=== PATIENT | female | born 1975 ===

== ENCOUNTER 2017-01-15 09:02 | Emergency (ER) | payer SELFPAY ==
--- NOTE | 2017-01-16 08:51 | CT ---
PROCEDURE: CT HEAD WITHOUT CONTRAST. HISTORY: Headaches COMPARISON: None available. TECHNIQUE: Axial computed tomography images were obtained through the head/brain without intravenous contrast. Radiation dose: Total exam DLP = 824.15 mGy-cm. This CT exam was performed using one or more of the following dose reduction techniques: Automated exposure control, adjustment of the mA and/or kV according to patient size, and/or use of iterative reconstruction technique. FINDINGS: HEMORRHAGE: No intracranial hemorrhage. BRAIN: No mass effect or edema. No atrophy or chronic microvascular ischemic changes.Please note that MRI with diffusion imaging is more sensitive in the detection of acute ischemic event. VENTRICLES: No hydrocephalus. CALVARIUM: Unremarkable. PARANASAL SINUSES: Unremarkable as visualized. No significant inflammatory changes. MASTOID AIR CELLS: Unremarkable as visualized. No inflammatory changes. OTHER FINDINGS: None. IMPRESSION: No acute intracranial pathology identified.
== END 2017-01-15 14:30 | disposition home or self-care (01) ==
LOC: C.ER 09:02 → MERGE 09:02 → C.ER 14:30
DX: R51 Headache (principal)
CPT/HCPCS: 70450; 96361; 96374; 96375; 99281; J1885; J2765; J7040

== ENCOUNTER 2017-06-24 10:24 | Emergency (ER) | payer OTHER ==
[2017-06-24 10:37] VITALS: TEMP 98.2
[2017-06-24] MEDS ORDERED: Naproxen 550 mg Tab PO STA (11:03)
[2017-06-24] MEDS ORDERED: Naproxen 550 mg Tab PO ONE (11:14)
--- NOTE | 2017-06-24 11:29 | RAD ---
PROCEDURE: Right Knee Radiographs. HISTORY: COMPARISON: Bilateral knee radiographs performed 11/30/13 FINDINGS: BONES: No acute displaced fracture. JOINTS: No dislocation. Mild medial compartment narrowing. JOINT EFFUSION: Small suprapatellar joint effusion. OTHER FINDINGS: None. IMPRESSION: Mild medial compartment narrowing. Small suprapatellar joint effusion. No acute displaced fracture or dislocation. If symptoms persist, or if there is continued clinical concern, x-ray follow-up in 7-10 days should be considered.
--- NOTE | 2017-06-24 11:32 | C.PDOC ---
History Of Present Illness 41 y/o female presents to ED with c/o R knee pain for 1 month. Patient states she fell while getting off a bus 1 month ago, landing onto both knees. She states she has not been seen previously because she could not get out of work. She denies head injury/LOC, weakness, sensory changes. Time Seen by Provider: 06/24/17 10:42 Chief Complaint (Nursing): Lower Extremity Problem/Injury History Per: Patient History/Exam Limitations: no limitations Onset/Duration Of Symptoms: Persistent Current Symptoms Are (Timing): Still Present Severity: Mild Past Medical History Reviewed: Historical Data, Nursing Documentation, Vital Signs Vital Signs: Last Vital Signs Temp 98.2 F 06/24/17 10:36 Pulse 71 06/24/17 12:41 Resp 18 06/24/17 12:41 BP 124/72 06/24/17 12:41 Pulse Ox 99 06/24/17 13:12 - Medical History PMH: Asthma, Diabetes, Hypercholesterolemia Family History: States: No Known Family Hx - Social History Hx Tobacco Use: No Hx Alcohol Use: No Hx Substance Use: No - Immunization History Hx Tetanus Toxoid Vaccination: No Hx Influenza Vaccination: Yes Hx Pneumococcal Vaccination: No Review Of Systems Except As Marked, All Systems Reviewed And Found Negative. Constitutional: Negative for: Fever, Chills Cardiovascular: Negative for: Chest Pain Respiratory: Negative for: Cough, Shortness of Breath Gastrointestinal: Negative for: Nausea, Vomiting, Abdominal Pain Musculoskeletal: Positive for: Other (Knee Pain, R) Skin: Negative for: Rash Neurological: Negative for: Weakness, Numbness, Dizziness Physical Exam - Physical Exam Appears: Well, Non-toxic, No Acute Distress Skin: Warm, Dry, No Ecchymosis Head: Normacephalic Cardiovascular: Rhythm Regular Respiratory: Normal Breath Sounds, No Rales, No Rhonchi, No Wheezing Back: Normal Inspection Extremity: Normal ROM, Tenderness (R knee mild diffuse tenderness to palpation ) , No Calf Tenderness, Capillary Refill (< 2 sec all digits ), No Deformity, No Swelling, Other (no erythema or warmth to touch at right knee) Extremity: Bilateral: Limited ROM To Joint Pulses: Left Radial: Normal, Right Radial: Normal Neurological/Psych: Oriented x3, Normal Motor, Normal Sensation Gait: Steady ED Course And Treatment O2 Sat by Pulse Oximetry: 99 (RA) Pulse Ox Interpretation: Normal - Other Rad RIGHT KNEE X-RAY X-Ray: Viewed By Me, Read By Radiologist Interpretation: IMPRESSION: Mild medial compartment narrowing. Small suprapatellar joint effusion. No acute displaced fracture or dislocation. If symptoms persist, or if there is continued clinical concern, x-ray follow-up in 7-10 days should be considered. Progress Note: Patient given PO Naprosyn. Xrays of right knee ordered and reviewed. Xray (-) for fracture/dislocation. Knee brace applied to right knee by electro mechanical technician. Patient given Rx for Naprosyn and instructed to follow up with orthopedics within 1 week. She understands she should return to ED if symptoms worsen. Reevaluation Time: 12:15 Reassessment Condition: Improved Disposition Counseled Patient/Family Regarding: Studies Performed, Diagnosis, Need For Followup, Rx Given - Disposition Referrals: Demetri Vuong III, MD [Staff Provider] - [facility] [Outside] Disposition: HOME/ ROUTINE Disposition Time: 12:15 Condition: STABLE Additional Instructions: SEGUIMIENTO CON ORTOPEDIA DENTRO DE 1 SEMANA USE MEDICAMENTO SEGN SEA NECESARIO PARA DOLOR REGRESE AL TORIE DE EMERGENCIA SI LOS SNTOMAS EMPEORAN Prescriptions: Naproxen 375 mg PO BID PRN #20 tablet PRN Reason: pain Instructions: Knee Sprain (ED) Forms: [facility] (Belarusian) Print Language: ISRAELI - POA Present On Arrival: Falls Or Trauma - Clinical Impression Clinical Impression: Sprain of right knee - Scribe Statement The provider has reviewed the documentation as recorded by the Scribe SM All medical record entries made by the Scribe were at my direction and personally dictated by me. I have reviewed the chart and agree that the record accurately reflects my personal performance of the history, physical exam, medical decision making, and the department course for this patient. I have also personally directed, reviewed, and agree with the discharge instructions and disposition.
[2017-06-24 12:43] VITALS: BP 124/72; PULSE 71; RESP 18
[2017-06-24 13:10] VITALS: O2SAT 99
== END 2017-06-24 12:43 | disposition home or self-care (01) ==
LOC: C.ER 10:24
DX: S83.91XA Sprain of unspecified site of right knee, initial encounter (principal); W17.89XA Other fall from one level to another, initial encounter

== ENCOUNTER 2017-07-11 01:07 | Emergency (ER) | payer SELFPAY ==
[2017-07-11] MEDS ORDERED: Sodium Chloride 0.9% 1,000 ML IV ONE (01:35)
--- NOTE | 2017-07-11 01:37 | C.PDOC ---
History Of Present Illness 41 year old female presents to the ER with a complaint of headache that she describes as a heavy sensation on her head for the past 6 days, associated with a subjective fever, neck pain, photophobia, and phonophobia. Patient states she had an episode of generalized body aches and chest pain 6 days ago, she was seen and treated at [facility] and notes she has had the headache since then. Denies chest pain, SOB, or Hx of headaches. Chief Complaint (Nursing): Medical Clearance History Per: Patient History/Exam Limitations: no limitations Onset/Duration Of Symptoms: Days Current Symptoms Are (Timing): Still Present Recent travel outside of the [place]: No Past Medical History Reviewed: Historical Data, Nursing Documentation, Vital Signs Vital Signs: Last Vital Signs Temp 98.0 F 07/11/17 01:19 Pulse 66 07/11/17 01:19 Resp 18 07/11/17 01:19 BP 119/71 07/11/17 01:19 Pulse Ox 98 07/11/17 02:22 - Medical History PMH: Asthma, Diabetes, Hypercholesterolemia Surgical History: No Surg Hx Family History: States: Unknown Family Hx - Social History Hx Tobacco Use: No Hx Alcohol Use: Yes Hx Substance Use: No - Immunization History Hx Tetanus Toxoid Vaccination: No Hx Influenza Vaccination: No Hx Pneumococcal Vaccination: No Review Of Systems Constitutional: Positive for: Fever (Subjective) Cardiovascular: Negative for: Chest Pain Respiratory: Negative for: Shortness of Breath Musculoskeletal: Positive for: Neck Pain Neurological: Positive for: Headache, Other (Photophobia, phonophobia) Physical Exam - Physical Exam Appears: Non-toxic, No Acute Distress, Other (Awake, Alert) Skin: Normal Color, Warm, Dry Head: Atraumatic, Normacephalic Eye(s): bilateral: Normal Inspection, EOMI Oral Mucosa: Moist Neck: Normal, No Midline Cervical Tenderness, No Paracervical Tenderness, Supple , Other (Patient is able to nod/shake her head yes/no to questions despite complaint of neck pain.) Chest: Symmetrical, No Tenderness Cardiovascular: Rhythm Regular Respiratory: Normal Breath Sounds, No Rales, No Rhonchi, No Wheezing Gastrointestinal/Abdominal: Soft, No Tenderness Neurological/Psych: Oriented x3, Normal Speech, Other (No focal deficits, negative kernig brudzinski sign) ED Course And Treatment O2 Sat by Pulse Oximetry: 98 (Room air) Pulse Ox Interpretation: Normal Medical Decision Making Medical Decision Making: Plan: * Compazine * Toradol * IV fluids On reevaluation, patient reports improvement of pain, will discharge home with Rx and instructions to follow up with PMD. Disposition - Disposition Referrals: [facility] at [facility] [Outside] Disposition: HOME/ ROUTINE Disposition Time: 02:19 Condition: FAIR Prescriptions: Acetaminophen/Butalbital/Caf [Fioricet] 1 tab PO QID PRN #12 tab PRN Reason: Pain, Mild (1-3) Instructions: Viral Syndrome (ED) Forms: [facility] (Montserratian) - Clinical Impression Clinical Impression: Viral syndrome, Cephalalgia - Scribe Statement The provider has reviewed the documentation as recorded by the Scribmichele Plasencia All medical record entries made by the Joselitoibmichele were at my direction and personally dictated by me. I have reviewed the chart and agree that the record accurately reflects my personal performance of the history, physical exam, medical decision making, and the department course for this patient. I have also personally directed, reviewed, and agree with the discharge instructions and disposition.
[2017-07-11] MEDS ORDERED: Sodium Chloride 0.9% 1,000 ML ONE (01:47)
[2017-07-11 02:50] VITALS: BP 109/80; PULSE 68; TEMP 97.4
[2017-07-11 02:52] VITALS: RESP 18
[2017-07-11 03:07] VITALS: O2SAT 98
== END 2017-07-11 02:51 | disposition home or self-care (01) ==
LOC: C.ER 01:07
DX: B34.9 Viral infection, unspecified (principal); R51 Headache
CPT/HCPCS: 96361; 96374; 96375; 99284; J0780; J1885; J7040

== ENCOUNTER 2017-10-02 17:48 | Inpatient (IN) | payer SELFPAY ==
[2017-10-02] MEDS ORDERED: Sodium Chloride 0.9% 1,000 ML IV ONE (19:45)
--- NOTE | 2017-10-02 19:47 | C.PDOC ---
History Of Present Illness 42 year old female presents to the ED referred from the [facility] for evaluation of anemia and Hb down to 7.3. Patient reports her period has been going on for the past 3 weeks as well as vaginal bleeding. Patient denies dizziness, headache, nausea, vomit, SOB, back pain. Chief Complaint (Nursing): Abnormal Labs History Per: Patient History/Exam Limitations: no limitations Onset/Duration Of Symptoms: Days Current Symptoms Are (Timing): Still Present Reports Recently: Treated By A Physician ([facility]) Recent travel outside of the [place]: No Additional History Per: Patient Past Medical History Vital Signs: Last Vital Signs Temp 98.7 F 10/02/17 18:06 Pulse 72 10/02/17 18:06 Resp 20 10/02/17 18:06 BP 109/61 10/02/17 18:06 Pulse Ox 100 10/02/17 21:46 - Medical History PMH: Asthma, Diabetes, Hypercholesterolemia Denies: Chronic Kidney Disease Surgical History: No Surg Hx Family History: States: Unknown Family Hx - Social History Hx Tobacco Use: No Hx Alcohol Use: Yes Hx Substance Use: No - Immunization History Hx Tetanus Toxoid Vaccination: No Hx Influenza Vaccination: No Hx Pneumococcal Vaccination: No Review Of Systems Constitutional: Negative for: Fever, Chills Cardiovascular: Negative for: Chest Pain, Palpitations Respiratory: Negative for: Cough, Shortness of Breath Gastrointestinal: Negative for: Nausea, Vomiting, Abdominal Pain, Diarrhea Genitourinary: Positive for: Vaginal Bleeding Musculoskeletal: Negative for: Back Pain Skin: Negative for: Rash Neurological: Negative for: Weakness, Numbness, Dizziness Physical Exam - Physical Exam Appears: Non-toxic, No Acute Distress Skin: Normal Color, Warm, Dry Head: Atraumatic, Normacephalic Eye(s): bilateral: Normal Inspection Nose: No Discharge, No Deformity Oral Mucosa: Moist Neck: Normal ROM, Supple Chest: Symmetrical Cardiovascular: Rhythm Regular, No Murmur Respiratory: Normal Breath Sounds, No Rales, No Rhonchi, No Wheezing Gastrointestinal/Abdominal: Soft, No Tenderness, No Guarding, No Rebound Pelvic: Normal External Exam, Vaginal Bleeding (minimal), No Cervix Open, Other (moderate amount of blood noted) Extremity: Normal ROM, No Deformity, No Swelling Neurological/Psych: Oriented x3, Normal Speech, Normal Cognition Gait: Steady ED Course And Treatment - Laboratory Results Result Diagrams: 10/02/17 19:55 10/02/17 19:55 O2 Sat by Pulse Oximetry: 100 (On RA) Pulse Ox Interpretation: Normal - CT Scan/US Pelvic US Other Rad Studies (CT/US): Read By Radiologist, Radiology Report Reviewed CT/US Interpretation: EXAM: US Pelvis Complete, Transabdominal. CLINICAL HISTORY: 42 years old, female; Signs and symptoms; Other: Prolonged vag bleed; Additional info: Prolongrd. vaginal bleeding. TECHNIQUE: Real-time transabdominal pelvic ultrasound (complete) with image documentation. COMPARISON: No relevant prior studies available. FINDINGS: Uterus/cervix: Uterus measures 12.1 x 6.2 x 7.4 cm in size. Heterogeneous uterus. 2.1 x 1.4 x 1.6. cm uterine mass. Nabothian cysts. Endometrium: 1.8 cm in thickness, heterogeneous. Right ovary: 3.9 x 3.0 x 4.3 cm in size. 3.8 x 3.9 x 2.5 cm anechoic lesion. Normal flow. Left ovary: Not visualized. Free fluid: No significant free fluid. Bladder: Unremarkable as visualized. IMPRESSION: 1. Thickened, heterogeneous endometrium. Clinical correlation is needed. 2. RIGHT ovarian cyst. EXAM: US Pelvis, Transvaginal. CLINICAL HISTORY: 42 years old , female; Signs and symptoms; Other: Prolonged vag bleed; Additional info: Prolongrd. vaginal bleeding. TECHNIQUE: Real-time transvaginal pelvic ultrasound (complete) with image documentation. Transvaginal. imaging was used for better evaluation of the endometrium and adnexa. COMPARISON: No relevant prior studies available. FINDINGS: Uterus/cervix: Uterus measures 12.1 x 6.2 x 7.4 cm in size. Heterogeneous uterus. 2.1 x 1.4 x 1.6. cm uterine mass. Nabothian cysts. Endometrium: 1.8 cm in thickness, heterogeneous. Right ovary: 3.9 x 3.0 x 4.3 cm in size. 3.8 x 3.9 x 2.5 cm anechoic lesion. Normal flow. Left ovary: Not visualized. Free fluid: No significant free fluid. Bladder: Empty bladder which cannot be evaluated with this probe. IMPRESSION: 1. Thickened, heterogeneous endometrium. Clinical correlation is needed. 2. RIGHT ovarian cyst. 3. Probable fibroid. 3. Probable fibroid. Medical Decision Making Medical Decision Making: Impression : vaginal bleeding, anemia Plan: * Labs * IV fluids * UA * Pelvis US Disposition Discussed With Dr.: Gregory Sands Doctor Will See Patient In The: Hospital Counseled Patient/Family Regarding: Diagnosis - Disposition Referrals: Gregory Sands MD [Staff Provider] - Disposition: HOSPITALIZED Disposition Time: 22:11 Condition: STABLE Forms: [facility] (Grenadian) - Clinical Impression Clinical Impression: Vaginal bleeding, Fibroid, uterine, Anemia - Scribe Statement The provider has reviewed the documentation as recorded by the Scribe Jason Su All medical record entries made by the Scribe were at my direction and personally dictated by me. I have reviewed the chart and agree that the record accurately reflects my personal performance of the history, physical exam, medical decision making, and the department course for this patient. I have also personally directed, reviewed, and agree with the discharge instructions and disposition.
[2017-10-02 20:03] LABS: BASO % 0.4 % (0.0-2.0); EOS # 0.1 K/uL (0.0-0.7); EOS % 0.9 % (0.0-4.0); HEMOGLOBIN 7.3 g/dL (11.0-16.0); LYMPH # 1.7 K/uL (1.0-4.3); LYMPH % 27.7 % (20.0-40.0); MEAN CELL VOLUME 71.1 fL (81.0-99.0); MEAN CORPUSCULAR HEMOGLOBIN 22.9 pg (27.0-31.0); MEAN CORPUSCULAR HGB CONC 32.2 g/dL (33.0-37.0); MONO # 0.2 K/uL (0.0-0.8); MONO % 3.9 % (0.0-10.0); NEUT # 4.2 K/uL (1.8-7.0); NEUT % 67.1 % (50.0-75.0); NRBC % 0.1 % (0.0-2.0); RBC 3.19 Mil/uL (3.80-5.20); RED CELL DISTRIBUTION WIDTH 17.1 % (11.5-14.5); WHITE BLOOD COUNT 6.3 K/uL (4.8-10.8)
[2017-10-02 20:08] LABS: PROTHROMBIN TIME 10.9 SECONDS (9.7-12.2)
[2017-10-02 20:14] LABS: ALB/GLOB RATIO 1.1 (1.0-2.1); ALT/SGPT 22 U/L (9-52); AST/SGOT 22 U/L (14-36); BLOOD UREA NITROGEN 8 mg/dL (7-17); CALCIUM 8.4 mg/dl (8.6-10.4); GFR AFRICAN-AMERICAN > 60; GFR NON-AFRICAN AMERICAN > 60
[2017-10-02 20:23] LABS: URINE BILIRUBIN NEGATIVE (NEGATIVE); URINE BLOOD 3+ (NEGATIVE); URINE CALCIUM OXALATE CRYSTALS MANY /hpf (<OCC); URINE CLARITY Hazy (Clear); URINE COLOR Red (YELLOW); URINE GLUCOSE (UA) NORMAL (Normal); URINE LEUKOCYTE ESTERASE TRACE Leu/uL (Negative); URINE NITRATE NEGATIVE (NEGATIVE); URINE PROTEIN 2+ mg/dL (NEGATIVE); URINE UROBILINOGEN NORMAL mg/dL (0.2-1.0)
[2017-10-02 20:29] LABS: HCG,QUALITATIVE URINE NEGATIVE (NEGATIVE)
[2017-10-02] MEDS ORDERED: Sodium Chloride 0.9% 1,000 ML ONE (20:37)
--- NOTE | 2017-10-02 21:45 | US ---
EXAM: US Pelvis Complete, Transabdominal CLINICAL HISTORY: 42 years old, female; Signs and symptoms; Other: Prolonged vag bleed; Additional info: Prolongrd vaginal bleeding TECHNIQUE: Real-time transabdominal pelvic ultrasound (complete) with image documentation. COMPARISON: No relevant prior studies available. FINDINGS: Uterus/cervix: Uterus measures 12.1 x 6.2 x 7.4 cm in size. Heterogeneous uterus. 2.1 x 1.4 x 1.6 cm uterine mass. Nabothian cysts. Endometrium: 1.8 cm in thickness, heterogeneous. Right ovary: 3.9 x 3.0 x 4.3 cm in size. 3.8 x 3.9 x 2.5 cm anechoic lesion. Normal flow. Left ovary: Not visualized. Free fluid: No significant free fluid. Bladder: Unremarkable as visualized. IMPRESSION: 1. Thickened, heterogeneous endometrium. Clinical correlation is needed. 2. RIGHT ovarian cyst. 3. Probable fibroid. EXAM: US Pelvis, Transvaginal CLINICAL HISTORY: 42 years old, female; Signs and symptoms; Other: Prolonged vag bleed; Additional info: Prolongrd vaginal bleeding TECHNIQUE: Real-time transvaginal pelvic ultrasound (complete) with image documentation. Transvaginal imaging was used for better evaluation of the endometrium and adnexa. COMPARISON: No relevant prior studies available. FINDINGS: Uterus/cervix: Uterus measures 12.1 x 6.2 x 7.4 cm in size. Heterogeneous uterus. 2.1 x 1.4 x 1.6 cm uterine mass. Nabothian cysts. Endometrium: 1.8 cm in thickness, heterogeneous. Right ovary: 3.9 x 3.0 x 4.3 cm in size. 3.8 x 3.9 x 2.5 cm anechoic lesion. Normal flow. Left ovary: Not visualized. Free fluid: No significant free fluid. Bladder: Empty bladder which cannot be evaluated with this probe.
--- NOTE | 2017-10-02 22:46 | CP.PCM.HP ---
History of Present Illness - History of Present Illness History of Present Illness: Chief compalint-vaginal bleeding HPI 42 y/o presents to ER with c/o heavy bleeding for last 3 weeks.Patient was prescribed tranexamic acid by her OBGYN Dr garrett Tilley but she took only few tablets.She feels weak and tired PMH Asthma PSH denies OBGYN HX ; [id number] Social hx denies tobacco,alcohol or illicit drug use Present on Admission - Present on Admission Any Indicators Present on Admission: No Review of Systems - Review of Systems All systems: reviewed and no additional remarkable complaints except - Constitutional Constitutional: Fatigue, Lethargy, Weakness - Cardiovascular Cardiovascular: absent: Chest Pain, Chest Pain with Activity, Irregular Heart Rhythm - Respiratory Respiratory: absent: Cough, Dyspnea - Gastrointestinal Gastrointestinal: absent: Nausea, Vomiting - Genitourinary Genitourinary: absent: Dysuria - Musculoskeletal Musculoskeletal: absent: Back Pain, Numbness - Neurological Neurological: absent: Vertigo, Weakness - Psychiatric Psychiatric: absent: Anxiety Past Patient History - Infectious Disease Hx of Infectious Diseases: None - Past Social History Smoking Status: Never Smoked - CARDIAC Hx Hypercholesterolemia: Yes - PULMONARY Hx Asthma: Yes - NEUROLOGICAL Hx Neurological Disorder: No - HEENT Hx HEENT Problems: No - RENAL Hx Chronic Kidney Disease: No - ENDOCRINE/METABOLIC Hx Endocrine Disorders: No - HEMATOLOGICAL/ONCOLOGICAL Hx Blood Disorders: No - INTEGUMENTARY Hx Dermatological Problems: No - MUSCULOSKELETAL/RHEUMATOLOGICAL Hx Musculoskeletal Disorders: No - GASTROINTESTINAL Hx Gastrointestinal Disorders: No - GENITOURINARY/GYNECOLOGICAL Hx Genitourinary Disorders: No - PSYCHIATRIC Hx Substance Use: No - SURGICAL HISTORY Hx Surgeries: No - ANESTHESIA Hx Anesthesia: No Meds Allergies/Adverse Reactions: Allergies Allergy/AdvReac Type Severity Reaction Status Date / Time No Known Allergies Allergy Verified 07/11/17 01:23 Physical Exam - Constitutional Appears: No Acute Distress - Respiratory Exam Respiratory Exam: Clear to Auscultation Bilateral, NORMAL BREATHING PATTERN - Cardiovascular Exam Cardiovascular Exam: REGULAR RHYTHM - GI/Abdominal Exam GI & Abdominal Exam: Soft. absent: Rigid, Tenderness - Exam External exam: NORMAL EXTERNAL EXAM Speculum exam: Vaginal Bleeding Bimanual exam: absent: Cervical Motion Tendernes, Uterine Enlargement, Uterine Tenderness - Extremities Exam Extremities exam: Negative for: calf tenderness - Back Exam Back exam: absent: CVA tenderness (L), CVA tenderness (R) - Neurological Exam Neurological exam: Alert, Normal Gait, Oriented x3 - Psychiatric Exam Psychiatric exam: Normal Affect, Normal Mood - Skin Skin Exam: Normal Color, Warm Results - Vital Signs Recent Vital Signs: Last Vital Signs Temp 99.2 F 10/02/17 22:35 Pulse 74 10/02/17 22:35 Resp 20 10/02/17 22:35 BP 110/56 L 10/02/17 22:35 Pulse Ox 100 10/02/17 22:35 - Labs Result Diagrams: 10/03/17 11:45 10/02/17 19:55 Labs: Laboratory Results - last 24 hr 10/02/17 10/02/17 10/02/17 19:55 19:55 19:55 WBC 6.3 RBC 3.19 L Hgb 7.3 L D Hct 22.7 L MCV 71.1 L MCH 22.9 L MCHC 32.2 L RDW 17.1 H Plt Count 281 MPV 8.0 Neut % (Auto) 67.1 Lymph % (Auto) 27.7 [place] % (Auto) 3.9 Eos % (Auto) 0.9 Baso % (Auto) 0.4 Neut # (Auto) 4.2 Lymph # (Auto) 1.7 [place] # (Auto) 0.2 Eos # (Auto) 0.1 Baso # (Auto) 0.0 PT 10.9 INR 1.0 APTT 30 Sodium 136 Potassium 3.7 Chloride 103 Carbon Dioxide 23 Anion Gap 14 BUN 8 Creatinine 0.5 L Est GFR ( Amer) > 60 Est GFR (Non-Af Amer) > 60 Random Glucose 102 Calcium 8.4 L Total Bilirubin 0.3 AST 22 ALT 22 Alkaline Phosphatase 84 Total Protein 7.5 Albumin 4.0 Globulin 3.5 Albumin/Globulin Ratio 1.1 Beta HCG, Quant < 2.39 Urine Color Urine Clarity Urine pH Ur Specific [place] Urine Protein Urine Glucose (UA) Urine Ketones Urine Blood Urine Nitrate Urine Bilirubin Urine Urobilinogen Ur Leukocyte Esterase Urine WBC (Auto) Urine RBC (Auto) Urine WBC Clumps (Auto) Calcium Oxalate Crystal Urine HCG, Qual Blood Type Blood Type Confirm Antibody Screen 10/02/17 10/02/17 19:55 20:01 WBC RBC Hgb Hct MCV MCH MCHC RDW Plt Count MPV Neut % (Auto) Lymph % (Auto) [place] % (Auto) Eos % (Auto) Baso % (Auto) Neut # (Auto) Lymph # (Auto) [place] # (Auto) Eos # (Auto) Baso # (Auto) PT INR APTT Sodium Potassium Chloride Carbon Dioxide Anion Gap BUN Creatinine Est GFR ( Amer) Est GFR (Non-Af Amer) Random Glucose Calcium Total Bilirubin AST ALT Alkaline Phosphatase Total Protein Albumin Globulin Albumin/Globulin Ratio Beta HCG, Quant Urine Color Red Urine Clarity Hazy Urine pH 6.0 Ur Specific [place] 1.013 Urine Protein 2+ H Urine Glucose (UA) Normal Urine Ketones Negative Urine Blood 3+ H Urine Nitrate Negative Urine Bilirubin Negative Urine Urobilinogen Normal Ur Leukocyte Esterase Trace Urine WBC (Auto) 5 Urine RBC (Auto) 6411 H Urine WBC Clumps (Auto) Sliver Former Calcium Oxalate Crystal Many H Urine HCG, Qual Negative Blood Type O POSITIVE Blood Type Confirm O POSITIVE Antibody Screen Negative Assessment & Plan (1) Anemia Assessment and Plan: Patient with symptomatic severe anemia transfuse 2 units s/p pelvic ultrasound thick endometrial lining.fibroid Status: Acute
[2017-10-03 02:44] VITALS: RESP 20
[2017-10-03 05:55] VITALS: PULSE 63
[2017-10-03 08:24] VITALS: BP 119/82; TEMP 98.3; O2SAT 100
[2017-10-03 11:54] LABS: BASO % 0.7 % (0.0-2.0); EOS # 0.1 K/uL (0.0-0.7); EOS % 1.8 % (0.0-4.0); LYMPH # 1.6 K/uL (1.0-4.3); LYMPH % 35.5 % (20.0-40.0); MEAN CORPUSCULAR HEMOGLOBIN 24.8 pg (27.0-31.0); MEAN CORPUSCULAR HGB CONC 33.4 g/dL (33.0-37.0); MEAN PLATELET VOLUME 8.1 fL (7.2-11.7); MONO # 0.3 K/uL (0.0-0.8); MONO % 5.9 % (0.0-10.0); NEUT # 2.6 K/uL (1.8-7.0); NEUT % 56.1 % (50.0-75.0); NRBC % 0.1 % (0.0-2.0); RBC 3.83 Mil/uL (3.80-5.20); RED CELL DISTRIBUTION WIDTH 18.5 % (11.5-14.5); WHITE BLOOD COUNT 4.6 K/uL (4.8-10.8)
[2017-10-03 12:07] LABS: HEMOGLOBIN 9.5 g/dL (11.0-16.0); MEAN CELL VOLUME 74.3 fL (81.0-99.0)
--- NOTE | 2017-10-03 12:51 | CP.PCM.DIS ---
Provider - Provider Date of Admission: 10/03/17 00:11 Attending physician: Gregory Sands MD Time Spent in preparation of Discharge (in minutes): 15 Diagnosis - Discharge Diagnosis (1) Anemia Status: Acute Hospital Course - Lab Results Lab Results: Most Recent Lab Values WBC 4.6 K/uL (4.8-10.8) L 10/03/17 11:45 RBC 3.83 Mil/uL (3.80-5.20) 10/03/17 11:45 Hgb 9.5 g/dL (11.0-16.0) L D 10/03/17 11:45 Hct 28.5 % (34.0-47.0) L 10/03/17 11:45 MCV 74.3 fL (81.0-99.0) L D 10/03/17 11:45 MCH 24.8 pg (27.0-31.0) L 10/03/17 11:45 MCHC 33.4 g/dL (33.0-37.0) 10/03/17 11:45 RDW 18.5 % (11.5-14.5) H 10/03/17 11:45 Plt Count 238 K/uL (130-400) 10/03/17 11:45 MPV 8.1 fL (7.2-11.7) 10/03/17 11:45 Neut % (Auto) 56.1 % (50.0-75.0) 10/03/17 11:45 Lymph % (Auto) 35.5 % (20.0-40.0) 10/03/17 11:45 [place] % (Auto) 5.9 % (0.0-10.0) 10/03/17 11:45 Eos % (Auto) 1.8 % (0.0-4.0) 10/03/17 11:45 Baso % (Auto) 0.7 % (0.0-2.0) 10/03/17 11:45 Neut # (Auto) 2.6 K/uL (1.8-7.0) 10/03/17 11:45 Lymph # (Auto) 1.6 K/uL (1.0-4.3) 10/03/17 11:45 [place] # (Auto) 0.3 K/uL (0.0-0.8) 10/03/17 11:45 Eos # (Auto) 0.1 K/uL (0.0-0.7) 10/03/17 11:45 Baso # (Auto) 0.0 K/uL (0.0-0.2) 10/03/17 11:45 PT 10.9 SECONDS (9.7-12.2) 10/02/17 19:55 INR 1.0 10/02/17 19:55 APTT 30 SECONDS (21-34) 10/02/17 19:55 Sodium 136 mmol/L (132-148) 10/02/17 19:55 Potassium 3.7 mmol/L (3.6-5.2) 10/02/17 19:55 Chloride 103 mmol/L (98-107) 10/02/17 19:55 Carbon Dioxide 23 mmol/L (22-30) 10/02/17 19:55 Anion Gap 14 (10-20) 10/02/17 19:55 BUN 8 mg/dL (7-17) 10/02/17 19:55 Creatinine 0.5 mg/dL (0.7-1.2) L 10/02/17 19:55 Est GFR ( Amer) > 60 10/02/17 19:55 Est GFR (Non-Af Amer) > 60 10/02/17 19:55 Random Glucose 102 mg/dL (65-105) 10/02/17 19:55 Calcium 8.4 mg/dl (8.6-10.4) L 10/02/17 19:55 Total Bilirubin 0.3 mg/dL (0.2-1.3) 10/02/17 19:55 AST 22 U/L (14-36) 10/02/17 19:55 ALT 22 U/L (9-52) 10/02/17 19:55 Alkaline Phosphatase 84 U/L (38-126) 10/02/17 19:55 Total Protein 7.5 g/dL (6.3-8.3) 10/02/17 19:55 Albumin 4.0 g/dL (3.5-5.0) 10/02/17 19:55 Globulin 3.5 gm/dL (2.2-3.9) 10/02/17 19:55 Albumin/Globulin Ratio 1.1 (1.0-2.1) 10/02/17 19:55 Beta HCG, Quant < 2.39 mIU/ML 10/02/17 19:55 Urine Color Red (YELLOW) 10/02/17 20:01 Urine Clarity Hazy (Clear) 10/02/17 20:01 Urine pH 6.0 (5.0-8.0) 10/02/17 20:01 Ur Specific [place] 1.013 (1.003-1.030) 10/02/17 20:01 Urine Protein 2+ mg/dL (NEGATIVE) H 10/02/17 20:01 Urine Glucose (UA) Normal mg/dL (Normal) 10/02/17 20:01 Urine Ketones Negative mg/dL (NEGATIVE) 10/02/17 20:01 Urine Blood 3+ (NEGATIVE) H 10/02/17 20:01 Urine Nitrate Negative (NEGATIVE) 10/02/17 20:01 Urine Bilirubin Negative (NEGATIVE) 10/02/17 20:01 Urine Urobilinogen Normal mg/dL (0.2-1.0) 10/02/17 20:01 Ur Leukocyte Esterase Trace Saad/uL (Negative) 10/02/17 20:01 Urine WBC (Auto) 5 /hpf (0-5) 10/02/17 20:01 Urine RBC (Auto) 6411 /hpf (0-3) H 10/02/17 20:01 Urine WBC Clumps (Auto) 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 10/02/17 20:01 Calcium Oxalate Crystal Many /hpf (<OCC) H 10/02/17 20:01 Urine HCG, Qual Negative (NEGATIVE) 10/02/17 20:01 Blood Type O POSITIVE 10/02/17 19:55 Blood Type Confirm O POSITIVE 10/02/17 19:55 Antibody Screen Negative 10/02/17 19:55 - Hospital Course Hospital Course: Patient admitted for symptomatic severe anemia secondary to menorrhagia Patient on admission noted to have minimal bleeding Patient transfused with 2 units of prbc after which the hemoglobin improved and patient started feeling better she was discharge and advsied to taek iron once daily She was also advsied to follow up with OBGYN next week for endometrial biopsy andfurtehr management Discharge Exam - Head Exam Head Exam: NORMAL INSPECTION - Respiratory Exam Respiratory Exam: Clear to PA & Lateral, NORMAL BREATHING PATTERN - Cardiovascular Exam Cardiovascular Exam: REGULAR RHYTHM - GI/Abdominal Exam GI & Abdominal Exam: Soft. absent: Rebound, Rigid - Back Exam Back exam: absent: CVA tenderness (L), CVA tenderness (R) - Neurological Exam Neurological exam: Alert, Normal Gait, Oriented x3 - Psychiatric Exam Psychiatric exam: Normal Affect, Normal Mood - Skin Skin Exam: Normal Color Discharge Plan - Follow Up Plan Condition: STABLE Disposition: HOME/ ROUTINE Referrals: Gregory Sands MD [Staff Provider] -
[2017-10-03] MEDS ORDERED: Pneumococcal 23-Valent Vaccine IM ONE (13:23)
[2017-10-05] MEDS ORDERED: Pneumococcal 23-Valent Vaccine IM ONE (10:00)
== END 2017-10-03 14:25 | disposition home or self-care (01) | DRG 761 ==
LOC: C.ER 17:48 → C.5S 10-03 00:11
PROVIDERS: ADMIT Student in an Organized Health Care Education/Training Program; ATTEND Student in an Organized Health Care Education/Training Program
DX: N92.0 Excessive and frequent menstruation with regular cycle (principal); D50.0 Iron deficiency anemia secondary to blood loss (chronic); E11.9 Type 2 diabetes mellitus without complications; J45.909 Unspecified asthma, uncomplicated; Z79.4 Long term (current) use of insulin

== ENCOUNTER 2018-02-03 20:12 | Emergency (ER) | payer OTHER ==
[2018-02-03 20:24] VITALS: TEMP 98.6; O2SAT 100
--- NOTE | 2018-02-03 20:59 | C.PDOC ---
Chief Complaint (Nursing): Chest Pain Past Medical History Vital Signs: Last Vital Signs Temp 98.6 F 02/03/18 20:17 Pulse 58 L 02/03/18 20:17 Resp 20 02/03/18 20:17 BP 132/79 02/03/18 20:17 Pulse Ox 100 02/03/18 20:17 - Medical History PMH: Asthma, Diabetes, Hypercholesterolemia Denies: Chronic Kidney Disease Family History: States: Unknown Family Hx - Social History Hx Tobacco Use: No Hx Alcohol Use: No Hx Substance Use: No - Immunization History Hx Tetanus Toxoid Vaccination: No Hx Influenza Vaccination: No Hx Pneumococcal Vaccination: No ED Course And Treatment ECG: Interpreted By Me, Viewed By Me ECG Rhythm: Sinus Bradycardia ECG Interpretation: Normal, No Acute Changes Interpretation Of ECG: Sinus bradycardia, no acute changes, normal tracings. Rate From EC O2 Sat by Pulse Oximetry: 100 Pulse Ox Interpretation: Normal Disposition - Disposition
--- NOTE | 2018-02-03 21:01 | C.PDOC ---
History Of Present Illness 42 y/o female presents to the ED complaining of chest pain that began earlier today while at work. Pain is localized to the anterior chest wall and radiates to the back. Worsens with movement and deep inspiration. Otherwise patient denies any palpitations, dizziness, SOB, nausea, vomiting, diaphoresis, or weakness. Time Seen by Provider: 02/03/18 20:53 Chief Complaint (Nursing): Chest Pain History Per: Patient History/Exam Limitations: no limitations Onset/Duration Of Symptoms: Hrs Current Symptoms Are (Timing): Still Present Past Medical History Reviewed: Historical Data, Nursing Documentation, Vital Signs Vital Signs: Last Vital Signs Temp 98.6 F 02/03/18 20:17 Pulse 63 02/03/18 21:32 Resp 18 02/03/18 21:32 BP 100/43 L 02/03/18 21:32 Pulse Ox 100 02/03/18 21:32 - Medical History PMH: Asthma, Diabetes, Hypercholesterolemia Denies: Chronic Kidney Disease Family History: States: Unknown Family Hx - Social History Hx Tobacco Use: No Hx Alcohol Use: No Hx Substance Use: No - Immunization History Hx Tetanus Toxoid Vaccination: No Hx Influenza Vaccination: No Hx Pneumococcal Vaccination: No Review Of Systems Constitutional: Negative for: Fever, Sweats Cardiovascular: Positive for: Chest Pain. Negative for: Palpitations Respiratory: Negative for: Shortness of Breath Gastrointestinal: Negative for: Nausea, Vomiting Neurological: Negative for: Weakness, Dizziness Physical Exam - Physical Exam Appears: No Acute Distress Skin: Normal Color, Warm, Dry Head: Atraumatic, Normacephalic Eye(s): bilateral: Normal Inspection, PERRL, EOMI Nose: Normal Oral Mucosa: Moist Chest: Symmetrical, Tenderness (to the anterior chest wall) Cardiovascular: Rhythm Regular, No Murmur Respiratory: Normal Breath Sounds, No Accessory Muscle Use, No Rales, No Rhonchi , No Wheezing Gastrointestinal/Abdominal: Soft, No Tenderness, No Distention Extremity: Bilateral: Atraumatic, Normal Color And Temperature, Normal ROM Pulses: Left Dorsalis Pedis: Normal, Right Dorsalis Pedis: Normal Neurological/Psych: Oriented x3, Normal Speech, Other (No focal deficits) Gait: Steady ED Course And Treatment - Laboratory Results Result Diagrams: 02/03/18 21:04 02/03/18 21:04 ECG: Interpreted By Me, Viewed By Me ECG Rhythm: Sinus Bradycardia ECG Interpretation: Normal, No Acute Changes Interpretation Of ECG: Sinus bradycardia, no acute changes, normal tracings Rate From EC O2 Sat by Pulse Oximetry: 100 (RA) Pulse Ox Interpretation: Normal Progress Note: Labs, CXR, and EKG ordered and reviewed. 30 mg IV Toradol administered. Disposition Counseled Patient/Family Regarding: Diagnosis - Disposition Referrals: [facility] [Outside] Disposition: HOME/ ROUTINE Disposition Time: 22:34 Condition: STABLE Prescriptions: Naproxen 375 mg PO TIDPC #14 tablet Instructions: Chest Pain, Costochondritis Forms: [facility] (Romanian), Gen Discharge Inst Macedonian Print Language: MONTENEGRIN - POA Present On Arrival: None - Clinical Impression Clinical Impression: Chest pain, Chest wall pain - Scribe Statement The provider has reviewed the documentation as recorded by the Scribe (Mikayla Morgan) Provider Attestation: All medical record entries made by the Scribe were at my direction and personally dictated by me. I have reviewed the chart and agree that the record accurately reflects my personal performance of the history, physical exam, medical decision making, and the department course for this patient. I have also personally directed, reviewed, and agree with the discharge instructions and disposition.
[2018-02-03 21:09] LABS: BASO % 0.3 % (0.0-2.0); EOS # 0.1 K/uL (0.0-0.7); EOS % 1.1 % (0.0-4.0); HEMOGLOBIN 8.5 g/dL (11.0-16.0); LYMPH # 1.1 K/uL (1.0-4.3); LYMPH % 21.9 % (20.0-40.0); MEAN CELL VOLUME 65.1 fL (81.0-99.0); MEAN CORPUSCULAR HEMOGLOBIN 19.5 pg (27.0-31.0); MEAN PLATELET VOLUME 7.5 fL (7.2-11.7); MONO # 0.3 K/uL (0.0-0.8); MONO % 5.1 % (0.0-10.0); NEUT # 3.6 K/uL (1.8-7.0); NEUT % 71.6 % (50.0-75.0); NRBC % 0.1 % (0.0-2.0); RBC 4.37 Mil/uL (3.80-5.20); RED CELL DISTRIBUTION WIDTH 19.8 % (11.5-14.5)
[2018-02-03 21:26] LABS: ALB/GLOB RATIO 1.1 (1.0-2.1); AST/SGOT 24 U/L (14-36); BLOOD UREA NITROGEN 7 mg/dL (7-17); CALCIUM 8.6 mg/dl (8.6-10.4); GFR AFRICAN-AMERICAN > 60; GFR NON-AFRICAN AMERICAN > 60
[2018-02-03 21:29] LABS: ALT/SGPT < 6 U/L (9-52)
[2018-02-03 22:06] VITALS: RESP 18
[2018-02-03 22:55] VITALS: BP 94/46; PULSE 68
--- NOTE | 2018-02-04 08:48 | RAD ---
Chest x-ray two views History: Chest pain. Comparison: None available. Findings: No focal infiltrate or effusion. Mild venous congestion. Heart size within normal limits. Impression: No focal infiltrate or effusion. Mild venous congestion.
--- NOTE | 2018-02-04 19:40 | CARD ---
APPROVED REPORT EKG Measurement Heart [id number] [id number] <Conclusion> Sinus bradycardia Low voltage QRS Borderline ECG
== END 2018-02-03 22:54 | disposition home or self-care (01) ==
LOC: C.ER 20:12
DX: R07.89 Other chest pain (principal); E11.9 Type 2 diabetes mellitus without complications; E78.00 Pure hypercholesterolemia, unspecified
CPT/HCPCS: 71046; 80053; 84484; 84703; 85025; 85378; 93005; 96374; 99284; J1885

== ENCOUNTER 2018-02-17 12:13 | Inpatient (IN) | payer OTHER ==
--- NOTE | 2018-02-17 13:28 | RAD ---
PROCEDURE: CHEST RADIOGRAPH, 1 VIEW HISTORY: chest pain COMPARISON: 02/03/2018 FINDINGS: LUNGS: Clear. PLEURA: No pneumothorax or pleural fluid seen. CARDIOVASCULAR: Normal. OSSEOUS STRUCTURES: No significant abnormalities. VISUALIZED UPPER ABDOMEN: Normal. OTHER FINDINGS: None. IMPRESSION: No active disease.
--- NOTE | 2018-02-17 13:51 | C.PDOC ---
History Of Present Illness 42 y/o female with history of Asthma, DM and High cholesterol presents to ED with c/o chest pain radiating to upper back and sob worsening since yesterday associated with nausea and dizziness. Patient reports similar symptoms when diagnosed with anemia and currently denies fever, chills, vaginal bleeding, vomiting or any other complaints at this time. She had a prior history of heavy menses requiring transfusion last Oct. Time Seen by Provider: 02/17/18 13:04 Chief Complaint (Nursing): Chest Pain History Per: Patient History/Exam Limitations: no limitations Onset/Duration Of Symptoms: Days Current Symptoms Are (Timing): Still Present Past Medical History Reviewed: Historical Data, Nursing Documentation, Vital Signs Vital Signs: Last Vital Signs Temp 98.5 F 02/17/18 12:34 Pulse 65 02/17/18 12:34 Resp 20 02/17/18 12:34 BP 98/63 L 02/17/18 12:34 Pulse Ox 100 02/17/18 13:52 - Medical History PMH: Asthma, Diabetes, Hypercholesterolemia Surgical History: No Surg Hx Family History: States: No Known Family Hx - Social History Hx Tobacco Use: No Hx Alcohol Use: No Hx Substance Use: No - Immunization History Hx Tetanus Toxoid Vaccination: No Hx Influenza Vaccination: No Hx Pneumococcal Vaccination: No Review Of Systems Constitutional: Negative for: Fever, Chills Cardiovascular: Positive for: Chest Pain Respiratory: Positive for: Shortness of Breath Gastrointestinal: Positive for: Nausea. Negative for: Vomiting, Abdominal Pain Genitourinary: Negative for: Dysuria Musculoskeletal: Positive for: Back Pain Skin: Negative for: Rash Physical Exam - Physical Exam Appears: Non-toxic, No Acute Distress Skin: Warm, Dry, Pale, No Rash Head: Atraumatic, Normacephalic Eye(s): bilateral: PERRL, EOMI, Conjunctiva Pale Oral Mucosa: Moist Neck: Normal ROM, Supple Cardiovascular: Rhythm Regular Respiratory: Normal Breath Sounds, No Rales, No Rhonchi, No Wheezing Gastrointestinal/Abdominal: Soft, No Tenderness, No Guarding, No Rebound Neurological/Psych: Oriented x3, Normal Speech, Normal Cognition ED Course And Treatment - Laboratory Results Result Diagrams: 02/17/18 13:54 02/17/18 13:54 Lab Interpretation: Abnormal (Hgb 6.6, Hct 22.0) ECG: Interpreted By Me ECG Rhythm: Sinus Rhythm ECG Interpretation: No Acute Changes O2 Sat by Pulse Oximetry: 100 (RA) Pulse Ox Interpretation: Normal - Radiology CXR: Viewed By Me, Read By Radiologist CXR Interpretation: Yes: No Acute Disease Reevaluation Time: 14:56 Reassessment Condition: Unchanged - Physician Consult Information Time Consulting Physician Contacted: 14:56 Physician Contacted: Prem Etienne Outcome Of Conversation: Patient to be admitted for severe symptomatic anemia requiring transfusions. Disposition - Disposition Disposition: HOSPITALIZED Disposition Time: 14:57 Condition: STABLE - POA Present On Arrival: None - Clinical Impression Clinical Impression: Severe anemia, Chest discomfort - Scribe Statement The provider has reviewed the documentation as recorded by the Scribmichele Cooley All medical record entries made by the Joselitoibmichele were at my direction and personally dictated by me. I have reviewed the chart and agree that the record accurately reflects my personal performance of the history, physical exam, medical decision making, and the department course for this patient. I have also personally directed, reviewed, and agree with the discharge instructions and disposition.
[2018-02-17 14:01] LABS: BASO % 0.6 % (0.0-2.0); EOS # 0.1 K/uL (0.0-0.7); HEMOGLOBIN 6.6 g/dL (11.0-16.0); LYMPH # 1.9 K/uL (1.0-4.3); LYMPH % 39.6 % (20.0-40.0); MEAN CELL VOLUME 64.4 fL (81.0-99.0); MEAN CORPUSCULAR HEMOGLOBIN 19.2 pg (27.0-31.0); MEAN CORPUSCULAR HGB CONC 29.9 g/dL (33.0-37.0); MEAN PLATELET VOLUME 7.5 fL (7.2-11.7); MONO # 0.2 K/uL (0.0-0.8); MONO % 4.9 % (0.0-10.0); NEUT # 2.4 K/uL (1.8-7.0); NEUT % 51.9 % (50.0-75.0); RBC 3.42 Mil/uL (3.80-5.20); RED CELL DISTRIBUTION WIDTH 18.7 % (11.5-14.5); WHITE BLOOD COUNT 4.7 K/uL (4.8-10.8)
[2018-02-17 14:19] LABS: ALB/GLOB RATIO 1.2 (1.0-2.1); ALBUMIN 3.7 g/dL (3.5-5.0); ALT/SGPT 26 U/L (9-52); AST/SGOT 20 U/L (14-36); BLOOD UREA NITROGEN 8 mg/dL (7-17); CALCIUM 8.2 mg/dl (8.6-10.4); GFR AFRICAN-AMERICAN > 60; GFR NON-AFRICAN AMERICAN > 60
--- NOTE | 2018-02-17 15:48 | CP.PCM.HP ---
History of Present Illness - History of Present Illness History of Present Illness: CC: Chest pain HPI: Patient is a 42 year old montserratian-speaking female with history of asthma, elevated triglycerides (TGL: 434, 2015) and fibroids, who presents to the ED with complaints of chest pain with radiation to the upper back that started two days ago, with associated symptoms of palpitations, dyspnea, nausea, dizziness and dizziness on ambulation. Patient reports that her symptoms have worsened over the past 2 days, which prompted the ER visit. Patient was last seen in the ED in October and was seen by Control Systems Drafting Officer hospitalist, who documented anemia secondary to Menorrhagia and requiring transfusion. Patient's last menstrual cycle was 01/31/18 with passage of medium-sized clots. Patient denies any other symptoms such as fever, chills, vomiting, numbness and tingling, hematochezia and hematuria. PMHx: asthma, elevated triglycerides (TGL: 434, 2015) and Fibroids PSHx: Denies FHx: Mother: (Osteoporosis), hypotension Father: DM and Hypertension Allergies: Advil, Acetaminophen Exhibits Manager Hx: * LMP: 01/31/18 * Known Hx of Fibroids ( Abdomen/Pelvis US, 10/02/2017): Thickened fibroids, right ovarian cyst and probable fibroids OBHx: Social Hx: Lives with her children. Admits to 1 cigarretes/ day and 1 glass of wine or alcoholic drink per week Present on Admission - Present on Admission Any Indicators Present on Admission: No Review of Systems - Constitutional Constitutional: Fatigue, Headache. absent: Chills, Excessive Sweating, Fever, Lethargy, Malaise, Night Sweats, Snoring - EENT Eyes: Change in Vision. absent: Blind Spots, Blurred Vision, Discharge, Dry Eye , Floaters, Irritation Ears: Dizziness. absent: Decreased Hearing, Disequilibrium Nose/Mouth/Throat: absent: Epistaxis - Cardiovascular Cardiovascular: Chest Pain, Dyspnea, Lightheadedness, Palpitations, Radiating Pain - Respiratory Respiratory: Dyspnea, Dyspnea on Exertion. absent: Wheezing, Pain on Inspiration, Chest Congestion - Gastrointestinal Gastrointestinal: Nausea. absent: Abdominal Pain, Bloating, Hematemesis, Hematochezia, Loose Stools, Vomiting - Genitourinary Genitourinary: absent: Difficulty Urinating, Hematuria - Reproductive: Female Reproductive:Female: Menses 1-7 Days, Heavy Menses - Endocrine Endocrine: Fatigue, Palpitations - Hematologic/Lymphatic Hematologic: absent: Easy Bleeding, Easy Bruising Past Patient History - Infectious Disease Hx of Infectious Diseases: None - Past Social History Smoking Status: Never Smoked - CARDIAC Hx Hypercholesterolemia: Yes - PULMONARY Hx Asthma: Yes - NEUROLOGICAL Hx Neurological Disorder: No - HEENT Hx HEENT Problems: No - RENAL Hx Chronic Kidney Disease: No - ENDOCRINE/METABOLIC Hx Endocrine Disorders: No - HEMATOLOGICAL/ONCOLOGICAL Hx Blood Disorders: No - INTEGUMENTARY Hx Dermatological Problems: No - MUSCULOSKELETAL/RHEUMATOLOGICAL Hx Musculoskeletal Disorders: No - GASTROINTESTINAL Hx Gastrointestinal Disorders: No - GENITOURINARY/GYNECOLOGICAL Hx Genitourinary Disorders: No - PSYCHIATRIC Hx Substance Use: No - SURGICAL HISTORY Hx Surgeries: No - ANESTHESIA Hx Anesthesia: No Hx Anesthesia Reactions: No Meds Allergies/Adverse Reactions: Allergies Allergy/AdvReac Type Severity Reaction Status Date / Time acetaminophen [From Tylenol] Allergy Verified 02/17/18 15:41 ibuprofen [From Advil] Allergy Verified 02/17/18 15:41 Physical Exam - Constitutional Appears: No Acute Distress - Head Exam Head Exam: ATRAUMATIC, NORMAL INSPECTION - Eye Exam Eye Exam: EOMI, Normal appearance Additional comments: Conjunctival pallor - ENT Exam ENT Exam: Mucous Membranes Moist - Respiratory Exam Respiratory Exam: Clear to Auscultation Bilateral, NORMAL BREATHING PATTERN. absent: Chest Wall Tenderness, Decreased Breath Sounds, Prolonged Expiratory Phase, Rhonchi, Wheezes, Respiratory Distress - Cardiovascular Exam Cardiovascular Exam: Tachycardia, REGULAR RHYTHM, +S1, +S2, Systolic Murmur. absent: Irregular Rhythm, +S4 - GI/Abdominal Exam GI & Abdominal Exam: Normal Bowel Sounds, Soft. absent: Diminished Bowel Sounds , Distended, Firm, Guarding, Hyperactive Bowel Sounds, Hypoactive Bowel Sounds, Organomegaly, Pulsatile Mass, Tenderness - Rectal Exam Rectal Exam: absent: Bloody Stool - Extremities Exam Extremities exam: Positive for: normal inspection. Negative for: calf tenderness, pedal edema, tenderness - Neurological Exam Neurological exam: Alert, Normal Gait, Oriented x3 - Psychiatric Exam Psychiatric exam: Normal Affect, Normal Mood - Skin Skin Exam: Pallor Results - Vital Signs Recent Vital Signs: Last Vital Signs Temp 98.5 F 02/17/18 12:34 Pulse 65 02/17/18 12:34 Resp 20 02/17/18 12:34 BP 98/63 L 02/17/18 12:34 Pulse Ox 100 02/17/18 14:58 - Labs Result Diagrams: 02/17/18 13:54 02/17/18 13:54 Labs: Laboratory Results - last 24 hr 02/17/18 02/17/18 02/17/18 13:45 13:54 13:54 WBC 4.7 L RBC 3.42 L Hgb 6.6 L Hct 22.0 L MCV 64.4 L MCH 19.2 L MCHC 29.9 L RDW 18.7 H Plt Count 241 MPV 7.5 Neut % (Auto) 51.9 Lymph % (Auto) 39.6 [place] % (Auto) 4.9 Eos % (Auto) 3.0 Baso % (Auto) 0.6 Neut # (Auto) 2.4 Lymph # (Auto) 1.9 [place] # (Auto) 0.2 Eos # (Auto) 0.1 Baso # (Auto) 0.0 Sodium 138 Potassium 4.0 Chloride 104 Carbon Dioxide 23 Anion Gap 15 BUN 8 Creatinine 0.5 L Est GFR ( Amer) > 60 Est GFR (Non-Af Amer) > 60 Random Glucose 98 Calcium 8.2 L Total Bilirubin 0.5 AST 20 ALT 26 Alkaline Phosphatase 82 Troponin I < 0.0120 Total Protein 6.7 Albumin 3.7 Globulin 3.0 Albumin/Globulin Ratio 1.2 Urine HCG, Qual Blood Type O POSITIVE Antibody Screen Negative 02/17/18 14:30 WBC RBC Hgb Hct MCV MCH MCHC RDW Plt Count MPV Neut % (Auto) Lymph % (Auto) [place] % (Auto) Eos % (Auto) Baso % (Auto) Neut # (Auto) Lymph # (Auto) [place] # (Auto) Eos # (Auto) Baso # (Auto) Sodium Potassium Chloride Carbon Dioxide Anion Gap BUN Creatinine Est GFR ( Amer) Est GFR (Non-Af Amer) Random Glucose Calcium Total Bilirubin AST ALT Alkaline Phosphatase Troponin I Total Protein Albumin Globulin Albumin/Globulin Ratio Urine HCG, Qual Negative Blood Type Antibody Screen Assessment & Plan (1) Symptomatic anemia Assessment and Plan: Possible secondary to menorrhagia Abdomen/Pelvis US (10/02/17): Thickened endometrium, Right ovarian cyst and probable fibroids. Please refer to the EMR for a complete impression On admission: H/H : 6.6/22.0 Iron: 20 TIBC: 477 % Saturation: 4L Ferritin: 3.1 Reticulocyte Count: 3.4 Troponin: Negative X1, f/u repeat X2 Stool Occult : Negative Awaiting Transferrin, ferritin, Vitamin B12 and folate Management: * Type and screen * Transfuse 1 unit of RBC * Will repeat CBC post-transfusion and will further transfuse if needed * Continue to monitor H/H with labs Status: Acute (2) Prophylactic measure Assessment and Plan: GI PPx: Not indication DVT PPx: SCDs, chemical anticoagulation not indication due to acute anemia All management discussed with Dr. Etienne Status: Acute
[2018-02-17 15:57] LABS: PROTHROMBIN TIME 10.7 SECONDS (9.7-12.2)
[2018-02-17 16:12] LABS: IRON 20 ug/dL (37-170)
[2018-02-17 16:21] LABS: % IRON SATURATION 4 (20-55); TOTAL IRON BINDING CAPACITY 477 ug/dL (250-450)
[2018-02-17] MEDS ORDERED: DiphenhydrAMINE 50 mg/ml Inj IVP ONE (16:30)
[2018-02-17 16:37] LABS: FERRITIN 3.1 ng/mL
[2018-02-17 17:07] LABS: FOLATE 11.2 ng/mL
--- NOTE | 2018-02-17 21:53 | CP.PCM.PN ---
Subjective - Date & Time of Evaluation Date of Evaluation: 02/17/18 Time of Evaluation: 07:00 - Subjective Subjective: Patient states she is allergic to Tylenol and Advil. When she takes these two medications she feels anxiety and shortness of breath. Patient states she can take Motrin without an adverse reaction. Objective - Vital Signs/Intake and Output Vital Signs (last 24 hours): Temp Pulse Resp BP Pulse Ox 98.5 F 71 20 120/74 100 02/17/18 17:25 02/17/18 17:25 02/17/18 17:25 02/17/18 17:25 02/17/18 17:25 - Medications Medications: Current Medications Ibuprofen (Motrin Tab) 400 mg PO STAT STA Stop: 02/17/18 21:53 - Labs Labs: 02/17/18 13:54 02/17/18 13:54 PT 10.7 SECONDS (9.7-12.2) 02/17/18 15:42 INR 1.0 02/17/18 15:42 APTT 30 SECONDS (21-34) 02/17/18 15:42
[2018-02-17 23:07] LABS: BASO % 0.2 % (0.0-2.0); EOS # 0.1 K/uL (0.0-0.7); EOS % 1.1 % (0.0-4.0); HEMOGLOBIN 8.1 g/dL (11.0-16.0); LYMPH # 1.4 K/uL (1.0-4.3); LYMPH % 21.1 % (20.0-40.0); MEAN CORPUSCULAR HGB CONC 30.9 g/dL (33.0-37.0); MEAN PLATELET VOLUME 7.4 fL (7.2-11.7); MONO # 0.3 K/uL (0.0-0.8); MONO % 5.3 % (0.0-10.0); NEUT # 4.7 K/uL (1.8-7.0); NEUT % 72.3 % (50.0-75.0); NRBC % 0.2 % (0.0-2.0); RBC 3.88 Mil/uL (3.80-5.20); WHITE BLOOD COUNT 6.5 K/uL (4.8-10.8)
[2018-02-17 23:10] LABS: MEAN CELL VOLUME 67.8 fL (81.0-99.0)
[2018-02-18 06:32] LABS: BASO % 0.2 % (0.0-2.0); EOS # 0.1 K/uL (0.0-0.7); EOS % 2.4 % (0.0-4.0); HEMOGLOBIN 8.5 g/dL (11.0-16.0); LYMPH # 1.6 K/uL (1.0-4.3); LYMPH % 26.1 % (20.0-40.0); MEAN CELL VOLUME 67.4 fL (81.0-99.0); MEAN CORPUSCULAR HEMOGLOBIN 20.6 pg (27.0-31.0); MEAN CORPUSCULAR HGB CONC 30.5 g/dL (33.0-37.0); MEAN PLATELET VOLUME 7.9 fL (7.2-11.7); MONO # 0.3 K/uL (0.0-0.8); MONO % 5.3 % (0.0-10.0); NRBC % 0.1 % (0.0-2.0); RBC 4.13 Mil/uL (3.80-5.20); RED CELL DISTRIBUTION WIDTH 21.6 % (11.5-14.5)
[2018-02-18 07:34] LABS: ALB/GLOB RATIO 1.2 (1.0-2.1); ALBUMIN 3.9 g/dL (3.5-5.0); ALT/SGPT 25 U/L (9-52); AST/SGOT 27 U/L (14-36); BLOOD UREA NITROGEN 12 mg/dL (7-17); CALCIUM 8.6 mg/dl (8.6-10.4); GFR AFRICAN-AMERICAN > 60; GFR NON-AFRICAN AMERICAN > 60
[2018-02-18 09:20] VITALS: BP 118/70; PULSE 54; RESP 18; TEMP 98.1; O2SAT 97
--- NOTE | 2018-02-18 11:25 | CP.PCM.DIS ---
Provider - Provider Date of Admission: 02/17/18 14:58 Attending physician: Prem Etienne MD Time Spent in preparation of Discharge (in minutes): 45 Diagnosis - Discharge Diagnosis (1) Symptomatic anemia Status: Acute (2) Prophylactic measure Status: Acute Hospital Course - Lab Results Lab Results: Most Recent Lab Values WBC 6.0 K/uL (4.8-10.8) 02/18/18 06:18 RBC 4.13 Mil/uL (3.80-5.20) 02/18/18 06:18 Hgb 8.5 g/dL (11.0-16.0) L 02/18/18 06:18 Hct 27.8 % (34.0-47.0) L 02/18/18 06:18 MCV 67.4 fL (81.0-99.0) L 02/18/18 06:18 MCH 20.6 pg (27.0-31.0) L 02/18/18 06:18 MCHC 30.5 g/dL (33.0-37.0) L 02/18/18 06:18 RDW 21.6 % (11.5-14.5) H 02/18/18 06:18 Plt Count 250 K/uL (130-400) 02/18/18 06:18 MPV 7.9 fL (7.2-11.7) 02/18/18 06:18 Neut % (Auto) 66.0 % (50.0-75.0) 02/18/18 06:18 Lymph % (Auto) 26.1 % (20.0-40.0) 02/18/18 06:18 [place] % (Auto) 5.3 % (0.0-10.0) 02/18/18 06:18 Eos % (Auto) 2.4 % (0.0-4.0) 02/18/18 06:18 Baso % (Auto) 0.2 % (0.0-2.0) 02/18/18:18 Neut # (Auto) 4.0 K/uL (1.8-7.0) 02/18/18 06:18 Lymph # (Auto) 1.6 K/uL (1.0-4.3) 02/18/18 06:18 [place] # (Auto) 0.3 K/uL (0.0-0.8) 02/18/18 06:18 Eos # (Auto) 0.1 K/uL (0.0-0.7) 02/18/18 06:18 Baso # (Auto) 0.0 K/uL (0.0-0.2) 02/18/18 06:18 Retic Count 3.4 % (0.5-1.5) H 02/17/18 15:42 PT 10.7 SECONDS (9.7-12.2) 02/17/18 15:42 INR 1.0 02/17/18 15:42 APTT 30 SECONDS (21-34) 02/17/18 15:42 Sodium 138 mmol/L (132-148) 02/18/18 06:18 Potassium 4.0 mmol/L (3.6-5.2) 02/18/18 06:18 Chloride 104 mmol/L (98-107) 02/18/18 06:18 Carbon Dioxide 23 mmol/L (22-30) 02/18/18 06:18 Anion Gap 14 (10-20) 02/18/18 06:18 BUN 12 mg/dL (7-17) 02/18/18 06:18 Creatinine 0.6 mg/dL (0.7-1.2) L 02/18/18 06:18 Est GFR ( Amer) > 60 02/18/18 06:18 Est GFR (Non-Af Amer) > 60 02/18/18 06:18 POC Glucose (mg/dL) 112 mg/dL (65-110) H 02/17/18 20:59 Random Glucose 96 mg/dL (65-105) 02/18/18 06:18 Calcium 8.6 mg/dl (8.6-10.4) 02/18/18 06:18 Phosphorus 4.0 mg/dL (2.5-4.5) 02/18/18 06:18 Magnesium 1.9 mg/dL (1.6-2.3) 02/18/18 06:18 Iron 20 ug/dL (37-170) L 02/17/18 15:42 TIBC 477 ug/dL (250-450) H 02/17/18 15:42 % Saturation 4 (20-55) L 02/17/18 15:42 Transferrin 337.16 mg/dL (206-381) 02/17/18 15:42 Ferritin 3.1 ng/mL 02/17/18 15:42 Total Bilirubin 0.9 mg/dL (0.2-1.3) 02/18/18 06:18 AST 27 U/L (14-36) 02/18/18 06:18 ALT 25 U/L (9-52) 02/18/18 06:18 Alkaline Phosphatase 68 U/L (38-126) 02/18/18 06:18 Troponin I < 0.0120 ng/mL (0.00-0.120) 02/18/18 06:18 Total Protein 7.0 g/dL (6.3-8.3) 02/18/18 06:18 Albumin 3.9 g/dL (3.5-5.0) 02/18/18 06:18 Globulin 3.1 gm/dL (2.2-3.9) 02/18/18 06:18 Albumin/Globulin Ratio 1.2 (1.0-2.1) 02/18/18 06:18 Vitamin B12 251 pg/mL (239-931) 02/17/18 15:42 Folate 11.2 ng/mL 02/17/18 15:42 Urine HCG, Qual Negative (NEGATIVE) 02/17/18 14:30 Stool Occult Blood Negative (NEGATIVE) 02/17/18 15:56 Blood Type O POSITIVE 02/17/18 13:45 Antibody Screen Negative 02/17/18 13:45 - Hospital Course Hospital Course: HPI (As per admission): Patient is a 42 year old yoruba-speaking female with history of asthma, elevated triglycerides (TGL: 434, 2015) and fibroids, who presents to the ED with complaints of chest pain with radiation to the upper back that started two days ago, with associated symptoms of palpitations, dyspnea, nausea, dizziness and dizziness on ambulation. Patient reports that her symptoms have worsened over the past 2 days, which prompted the ER visit. Patient was last seen in the ED in October and was seen by [facility] hospitalist, who documented anemia secondary to Menorrhagia and requiring transfusion. Patient's last menstrual cycle was 01/31/18 with passage of medium-sized clots. Patient denies any other symptoms such as fever, chills, vomiting, numbness and tingling, hematochezia and hematuria. Hospital Course: Patient was admitted with the diagnosis of symptomatic anemia. Subsequently, patient was transfused 1 units of RBC and H/H improved from 6.6/22.0 to 8.5/ 27.8. Patient remained clinically stable over the course of admission with no acute issues. Patient symptoms improved post-transfusion. Patient was cleared by medical team upon discharge. Patient was discharge with appropriate medication and instructions. Pertinent Labs: - Troponin negative X3 - H/H: 6.6/22.0 to 8.5/27.8. This is a brief summary of events. For a complete course, please refer to the medical records. Discharge Exam - Head Exam Head Exam: ATRAUMATIC, NORMAL INSPECTION - Eye Exam Eye Exam: EOMI, Normal appearance - ENT Exam ENT Exam: Mucous Membranes Moist - Respiratory Exam Respiratory Exam: Clear to PA & Lateral, NORMAL BREATHING PATTERN. absent: Prolonged Expiratory Phase, Wheezes, Respiratory Distress - Cardiovascular Exam Cardiovascular Exam: REGULAR RHYTHM, +S1, +S2. absent: Systolic Murmur - GI/Abdominal Exam GI & Abdominal Exam: Normal Bowel Sounds, Soft. absent: Diminished Bowel Sounds , Distended, Firm, Hyperactive Bowel Sounds, Tenderness - Extremities Exam Extremities exam: normal inspection - Neurological Exam Neurological exam: Alert, Oriented x3 - Psychiatric Exam Psychiatric exam: Normal Affect - Skin Skin Exam: Normal Color Discharge Plan - Discharge Medications Prescriptions: Ferrous Fumarate [Jonatan-Sequel] 324 mg PO DAILY #30 tab - Follow Up Plan Condition: STABLE Disposition: HOME/ ROUTINE Instructions: Chest Pain (DC), Ferrous Fumarate, Normocytic Normochromic Anemia (DC) Additional Instructions: Please discharge patient home Please start the following medication: 1. Jonatan-Sequel 324mg PO daily - 1 Tablet with breakfast everyday Please follow with [facility], in order to establish primary care Please follow up with an criminal intelligence specialist for follow up regarding diagnosis of menorrhagia and probable fibroids noted on abdominal/pelvis US. Please take the results of your abdomen/pelvis US for your criminal intelligence specialist visit . Please return to the hospital if symptoms resume Please take care Referrals: [facility] [Provider Group] Gregory Sands MD [Staff Provider] -
--- NOTE | 2018-02-18 15:40 | CARD ---
APPROVED REPORT EKG Measurement Heart [id number] <Conclusion> Normal sinus rhythm Cannot rule out Anterior infarct, age undetermined Abnormal ECG
== END 2018-02-18 15:15 | disposition home or self-care (01) | DRG 395 ==
LOC: C.ER 12:13 → C.9E 14:58 → C.6T 16:01
PROVIDERS: ADMIT Internal Medicine; ATTEND Internal Medicine
PROC: 30233N1 Transfusion of Nonautologous Red Blood Cells into Peripheral Vein, Percutaneous Approach (ICD-10-PCS; principal; 2018-02-17)
DX: D50.0 Iron deficiency anemia secondary to blood loss (chronic) (principal); D25.9 Leiomyoma of uterus, unspecified; N92.0 Excessive and frequent menstruation with regular cycle; N83.201 Unspecified ovarian cyst, right side; E11.9 Type 2 diabetes mellitus without complications; J45.909 Unspecified asthma, uncomplicated; E78.00 Pure hypercholesterolemia, unspecified; E78.1 Pure hyperglyceridemia; F41.9 Anxiety disorder, unspecified; Z88.6 Allergy status to analgesic agent

== ENCOUNTER 2018-03-31 15:39 | Emergency (ER) | payer OTHER ==
[2018-03-31 16:05] VITALS: TEMP 99; O2SAT 100
[2018-03-31] MEDS ORDERED: Sodium Chloride 0.9% 1,000 ML IV ONE (16:17)
--- NOTE | 2018-03-31 16:25 | C.PDOC ---
History Of Present Illness 42 year old female patient presents to the ER with chest pain that started at work today. Patient states that the pain radiates to her back. Patient notes she has her period and has heavy bleeding. She also notes she has fibroids in her uterus and has had blood transfusion. Patient was seen here last month for the same complaint and was discharged. Patient denies fever, chills, fatigue, lightheadedness, dizziness, SOB, and abdominal pain. Time Seen by Provider: 03/31/18 16:04 Chief Complaint (Nursing): Chest Pain History Per: Patient History/Exam Limitations: no limitations Onset/Duration Of Symptoms: Hrs Current Symptoms Are (Timing): Still Present Quality: "Pain" Past Medical History Reviewed: Historical Data, Nursing Documentation, Vital Signs Vital Signs: Last Vital Signs Temp 99 F 03/31/18 16:03 Pulse 63 03/31/18 17:51 Resp 21 03/31/18 17:51 BP 111/58 L 03/31/18 17:51 Pulse Ox 100 03/31/18 17:51 - Medical History PMH: Anemia, Asthma, Diabetes, Hypercholesterolemia - [facility] Procedures TRANSFUSE NONAUT RED BLOOD CELLS IN PERIPH VEIN, PERC (02/17/18) Family History: States: Unknown Family Hx - Social History Hx Tobacco Use: No Hx Alcohol Use: No Hx Substance Use: No - Immunization History Hx Tetanus Toxoid Vaccination: No Hx Influenza Vaccination: No Hx Pneumococcal Vaccination: No Review Of Systems Except As Marked, All Systems Reviewed And Found Negative. Constitutional: Negative for: Fever, Chills Cardiovascular: Positive for: Chest Pain. Negative for: Light Headedness Respiratory: Negative for: Shortness of Breath Musculoskeletal: Positive for: Back Pain (from chest pain). Negative for: Other (abdominal pain) Neurological: Negative for: Dizziness, Other (fatigued) Physical Exam - Physical Exam Appears: Well, Non-toxic, No Acute Distress Skin: Normal Color, Warm, Dry Head: Atraumatic, Normacephalic Eye(s): bilateral: Normal Inspection, EOMI Chest: Symmetrical, No Deformity Cardiovascular: Rhythm Regular Respiratory: Normal Breath Sounds, No Rales, No Rhonchi, No Wheezing Gastrointestinal/Abdominal: Soft, No Tenderness Back: No CVA Tenderness Extremity: Normal ROM (x4), No Pedal Edema, No Calf Tenderness, Capillary Refill (<2 sec), No Deformity Pulses: Left Dorsalis Pedis: Normal, Right Dorsalis Pedis: Normal Neurological/Psych: Oriented x3, Normal Speech, Normal Motor, Normal Sensation, Normal Reflexes Gait: Steady ED Course And Treatment - Laboratory Results Result Diagrams: 03/31/18 16:32 03/31/18 16:32 Lab Interpretation: No Acute Changes Urine POC: Negative ECG: Interpreted By Me ECG Rhythm: Sinus Rhythm, Nonspecific Changes ECG Interpretation: No Changes From Prior Rate From EC O2 Sat by Pulse Oximetry: 100 (RA) Pulse Ox Interpretation: Normal - Radiology CXR: Interpreted by Me CXR Interpretation: Yes: No Acute Disease Progress Note: Impression: chest pain that radiates to the back. Plans: -- blood work. -- CXR. -- IV fluids. On re-evaluation lungs clear, in no distress, patient currently has menses. Advised to follow up at clinic for further evaluation. -- UA. reassess: Patient is resting comfortably, is no longer having chest pain or shortness of breath. Patient has no risk factors for pulmonary emboli or DVT. Patient is advised to f/u with PCP in 1-2 days. Reassessment Condition: Improved Disposition Counseled Patient/Family Regarding: Studies Performed, Diagnosis, Need For Followup, Rx Given - Disposition Disposition: HOME/ ROUTINE Disposition Time: 18:30 Condition: STABLE Additional Instructions: Follow up with clinic for further evaluation Return to ED if any increase symptoms Instructions: Chest Pain That Is Not Caused by the Heart (DC) Forms: [facility] (Tanzanian) - POA Present On Arrival: None - Clinical Impression Clinical Impression: Chest discomfort, Musculoskeletal chest pain - PA / SIDE GUIDER / Resident Statement / has reviewed & agrees with the documentation as recorded. - Scribe Statement The provider has reviewed the documentation as recorded by the Abdirashid Allan Do All medical record entries made by the Abdirashid were at my direction and personally dictated by me. I have reviewed the chart and agree that the record accurately reflects my personal performance of the history, physical exam, medical decision making, and the department course for this patient. I have also personally directed, reviewed, and agree with the discharge instructions and disposition.
[2018-03-31 16:40] LABS: BASO % 0.3 % (0.0-2.0); EOS # 0.1 K/uL (0.0-0.7); EOS % 1.4 % (0.0-4.0); HEMOGLOBIN 9.8 g/dL (11.0-16.0); LYMPH # 1.8 K/uL (1.0-4.3); LYMPH % 29.8 % (20.0-40.0); MEAN CELL VOLUME 75.1 fL (81.0-99.0); MEAN CORPUSCULAR HEMOGLOBIN 24.5 pg (27.0-31.0); MEAN CORPUSCULAR HGB CONC 32.7 g/dL (33.0-37.0); MONO # 0.3 K/uL (0.0-0.8); MONO % 4.4 % (0.0-10.0); NEUT # 3.8 K/uL (1.8-7.0); NEUT % 64.1 % (50.0-75.0); RBC 3.98 Mil/uL (3.80-5.20); RED CELL DISTRIBUTION WIDTH 23.8 % (11.5-14.5)
[2018-03-31] MEDS ORDERED: Sodium Chloride 0.9% 1,000 ML ONE (16:42)
[2018-03-31 16:48] LABS: HCG,QUALITATIVE URINE NEGATIVE (NEGATIVE)
[2018-03-31 16:51] LABS: SQUAMOUS EPITHIAL < 1 /hpf (0-5); URINE BILIRUBIN NEGATIVE (NEGATIVE); URINE BLOOD 1+ (NEGATIVE); URINE CLARITY Clear (Clear); URINE COLOR Straw (YELLOW); URINE GLUCOSE (UA) NORMAL (Normal); URINE LEUKOCYTE ESTERASE NEG Leu/uL (Negative); URINE PROTEIN NEGATIVE (NEGATIVE); URINE UROBILINOGEN NORMAL mg/dL (0.2-1.0)
[2018-03-31 17:18] LABS: ALBUMIN 4.2 g/dL (3.5-5.0); BLOOD UREA NITROGEN 8 mg/dL (7-17); CALCIUM 8.5 mg/dl (8.6-10.4); GFR AFRICAN-AMERICAN > 60; GFR NON-AFRICAN AMERICAN > 60
[2018-03-31 17:19] LABS: ALB/GLOB RATIO 1.3 (1.0-2.1); ALT/SGPT 33 U/L (9-52); AST/SGOT 23 U/L (14-36); LIPASE 115 U/L (23-300)
--- NOTE | 2018-03-31 17:49 | RAD ---
HISTORY: COMPARISON: 02/17/2018. TECHNIQUE: Chest PA and lateral FINDINGS: LINES AND TUBES: None. LUNG AND PLEURA: The lungs are well inflated and clear. No pleural effusion or pneumothorax. HEART AND MEDIASTINUM: The heart is not enlarged. The hilar and mediastinal contours are within normal limits. SKELETAL STRUCTURES: The bony structures are within normal limits for the patient's age. VISUALIZED UPPER ABDOMEN: Normal. OTHER FINDINGS: None. IMPRESSION: No active pulmonary disease.
[2018-03-31 17:52] VITALS: BP 111/58; PULSE 63; RESP 21
== END 2018-03-31 18:59 | disposition home or self-care (01) ==
LOC: C.ER 15:39
DX: R07.89 Other chest pain (principal)

== ENCOUNTER 2018-06-19 00:05 | Emergency (ER) | payer OTHER ==
--- NOTE | 2018-06-19 00:20 | C.PDOC ---
History Of Present Illness 42 year old female presents to the ED c/o palpitations and headache that woke her up from sleep tonight. Patient reports having similar symptoms in the past. Patient states she has very heavy periods for which she has been transfused in the past. Patient denies fever, chills, CP, SOB, cough, weakness, numbness, visual changes, headache. Time Seen by Provider: 06/19/18 00:19 Chief Complaint (Nursing): Palpitations History Per: Patient History/Exam Limitations: no limitations Onset/Duration Of Symptoms: Hrs Current Symptoms Are (Timing): Still Present Quality Of Symptoms: Asymptomatic Exacerbating Factor(s): Pos: None Recent travel outside of the [place]: No Additional History Per: Patient Past Medical History Reviewed: Historical Data, Nursing Documentation, Vital Signs Vital Signs: Last Vital Signs Temp 98.8 F 06/19/18 00:12 Pulse 73 06/19/18 00:12 Resp 27 H 06/19/18 00:12 BP 123/68 06/19/18 00:12 Pulse Ox 100 06/19/18 00:12 - Medical History PMH: Anemia, Asthma, Diabetes, HTN, Hypercholesterolemia Denies: Chronic Kidney Disease Surgical History: No Surg Hx - [facility] Procedures TRANSFUSE NONAUT RED BLOOD CELLS IN PERIPH VEIN, PERC (02/17/18) Family History: States: Unknown Family Hx - Social History Hx Tobacco Use: No Hx Alcohol Use: No Hx Substance Use: No - Immunization History Hx Tetanus Toxoid Vaccination: No Hx Influenza Vaccination: No Hx Pneumococcal Vaccination: No Review Of Systems Constitutional: Negative for: Fever, Chills Eyes: Negative for: Vision Change Cardiovascular: Positive for: Palpitations. Negative for: Chest Pain Respiratory: Negative for: Cough, Shortness of Breath Gastrointestinal: Negative for: Nausea, Vomiting Neurological: Positive for: Headache. Negative for: Weakness, Numbness, Dizziness Physical Exam - Physical Exam Appears: Non-toxic, No Acute Distress Skin: Warm, Dry Head: Normacephalic Eye(s): bilateral: Normal Inspection Neck: Supple Chest: Symmetrical Cardiovascular: Rhythm Regular Respiratory: No Rales, No Rhonchi, No Wheezing Gastrointestinal/Abdominal: Soft, No Tenderness, No Guarding, No Rebound Back: Normal Inspection Extremity: Bilateral: Atraumatic, No Pedal Edema, Normal Color And Temperature Neurological/Psych: Oriented x3, Normal Speech, Normal Cognition Gait: Steady ED Course And Treatment - Laboratory Results Result Diagrams: 06/19/18 01:12 06/19/18 03:14 ECG: Interpreted By Me, Viewed By Me ECG Rhythm: Sinus Rhythm (72), Nonspecific Changes O2 Sat by Pulse Oximetry: 100 (ON RA) Pulse Ox Interpretation: Normal - Radiology CXR: Interpreted by Me, Viewed By Me CXR Interpretation: No: Infiltrates, Fracture, Pnemothorax Progress Note: Plan: - Labs. - EKG. - UA Reevaluation Time: 04:24 Reassessment Condition: Improved Disposition Counseled Patient/Family Regarding: Studies Performed, Diagnosis, Need For Followup - Disposition Referrals: [facility] [Outside] [facility] [Outside] Disposition: HOME/ ROUTINE Disposition Time: 00:20 Condition: FAIR Additional Instructions: Please return if symptoms recur Instructions: Palpitations (DC) Forms: [facility] (Greek) - Clinical Impression Clinical Impression: Palpitations - Scribe Statement The provider has reviewed the documentation as recorded by the Scribe Jason Su All medical record entries made by the Scribe were at my direction and personally dictated by me. I have reviewed the chart and agree that the record accurately reflects my personal performance of the history, physical exam, medical decision making, and the department course for this patient. I have also personally directed, reviewed, and agree with the discharge instructions and disposition.
[2018-06-19 01:17] LABS: HCG,QUALITATIVE URINE NEGATIVE (NEGATIVE)
[2018-06-19 01:19] LABS: SQUAMOUS EPITHIAL 7 /hpf (0-5); URINE BILIRUBIN NEGATIVE (NEGATIVE); URINE BLOOD 2+ (NEGATIVE); URINE CLARITY Clear (Clear); URINE COLOR Straw (YELLOW); URINE GLUCOSE (UA) NORMAL (Normal); URINE LEUKOCYTE ESTERASE NEG Leu/uL (Negative); URINE PROTEIN NEGATIVE (NEGATIVE); URINE UROBILINOGEN NORMAL mg/dL (0.2-1.0)
[2018-06-19 01:22] LABS: BASO % 0.6 % (0.0-2.0); EOS # 0.1 K/uL (0.0-0.7); EOS % 2.6 % (0.0-4.0); HEMOGLOBIN 9.4 g/dL (11.0-16.0); LYMPH % 36.9 % (20.0-40.0); MEAN CELL VOLUME 71.5 fL (81.0-99.0); MEAN CORPUSCULAR HEMOGLOBIN 22.8 pg (27.0-31.0); MEAN CORPUSCULAR HGB CONC 31.8 g/dL (33.0-37.0); MEAN PLATELET VOLUME 7.8 fL (7.2-11.7); MONO # 0.3 K/uL (0.0-0.8); MONO % 6.4 % (0.0-10.0); NEUT # 2.8 K/uL (1.8-7.0); NEUT % 53.5 % (50.0-75.0); NRBC % 0.1 % (0.0-2.0); RBC 4.15 Mil/uL (3.80-5.20); RED CELL DISTRIBUTION WIDTH 17.6 % (11.5-14.5); WHITE BLOOD COUNT 5.3 K/uL (4.8-10.8)
[2018-06-19 01:43] LABS: BARBITURATES, UR NEGATIVE (NEGATIVE); BENZODIAZEPINES, UR NEGATIVE (NEGATIVE); OPIATES, UR NEGATIVE (NEGATIVE); PHENCYCLIDINE, UR NEGATIVE (NEGATIVE)
[2018-06-19 03:23] LABS: ALB/GLOB RATIO 1.2 (1.0-2.1); ALBUMIN 3.7 g/dL (3.5-5.0); ALT/SGPT 15 U/L (9-52); AST/SGOT 18 U/L (14-36); BLOOD UREA NITROGEN 14 mg/dL (7-17); CALCIUM 8.3 mg/dl (8.6-10.4); GFR NON-AFRICAN AMERICAN > 60
[2018-06-19 04:13] LABS: INR 1.1; PROTHROMBIN TIME 11.8 SECONDS (9.7-12.2)
[2018-06-19 04:31] VITALS: BP 88/56; PULSE 60; RESP 18; TEMP 98.6; O2SAT 97
--- NOTE | 2018-06-22 19:41 | CARD ---
APPROVED REPORT Date of service: 06/19/2018 EKG Measurement Heart [id number] <Conclusion> Normal sinus rhythm Normal ECG
== END 2018-06-19 07:05 | disposition home or self-care (01) ==
LOC: C.ER 00:05
DX: R00.2 Palpitations (principal)

== ENCOUNTER 2018-06-30 22:24 | Emergency (ER) | payer MEDICAID, OTHER ==
--- NOTE | 2018-06-30 23:20 | C.PDOC ---
History Of Present Illness patient presents with reproducible left chest wall and back pain. 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 No f/c/n/v. Dull aching chest pain. Na asa given as pt is allergic to it. Time Seen by Provider: 06/30/18 23:16 Chief Complaint (Nursing): Chest Pain History Per: Patient History/Exam Limitations: no limitations Onset/Duration Of Symptoms: Hrs Current Symptoms Are (Timing): Still Present Context: Other Severity: Moderate Pain Scale Rating Of: 4 Quality: Dull Associated Symptoms: denies: Nausea, Dyspnea Exacerbating Factors: Turning, Movement Alleviating Factors: None Recent travel outside of the [place]: No Additional History Per: Patient Past Medical History Reviewed: Historical Data, Nursing Documentation, Vital Signs Vital Signs: Last Vital Signs Temp 98.3 F 06/30/18 22:53 Pulse 89 06/30/18 22:53 Resp 17 06/30/18 22:53 BP 121/69 06/30/18 22:53 Pulse Ox 100 06/30/18 22:53 - Medical History PMH: Anemia, Asthma, Diabetes, HTN, Hypercholesterolemia Denies: Chronic Kidney Disease - [facility] Procedures TRANSFUSE NONAUT RED BLOOD CELLS IN PERIPH VEIN, PERC (02/17/18) Family History: States: No Known Family Hx - Social History Hx Tobacco Use: No Hx Alcohol Use: No Hx Substance Use: No - Immunization History Hx Tetanus Toxoid Vaccination: No Hx Influenza Vaccination: No Hx Pneumococcal Vaccination: No Review Of Systems Constitutional: Negative for: Fever, Chills Eyes: Negative for: Vision Change ENT: Negative for: Nose Discharge Cardiovascular: Positive for: Chest Pain Respiratory: Negative for: Shortness of Breath Gastrointestinal: Negative for: Nausea, Vomiting, Abdominal Pain Genitourinary: Negative for: Dysuria Musculoskeletal: Negative for: Back Pain Skin: Negative for: Rash Neurological: Negative for: Weakness Psych: Negative for: Anxiety Physical Exam - Physical Exam Appears: Non-toxic, No Acute Distress Skin: Warm, Dry Head: Normacephalic Eye(s): bilateral: Normal Inspection Oral Mucosa: Moist Neck: Supple Chest: Symmetrical, Tenderness Cardiovascular: Rhythm Regular Respiratory: No Rales, No Rhonchi, No Wheezing Gastrointestinal/Abdominal: Soft, No Tenderness Back: No CVA Tenderness Extremity: Normal ROM Extremity: Bilateral: Atraumatic Pulses: Left Dorsalis Pedis: Normal, Right Dorsalis Pedis: Normal Neurological/Psych: Oriented x3, Normal Speech Gait: Steady ED Course And Treatment - Laboratory Results Result Diagrams: 06/30/18 23:47 06/30/18 23:47 ECG: Interpreted By Me, Viewed By Me ECG Rhythm: Sinus Rhythm (81), Nonspecific Changes O2 Sat by Pulse Oximetry: 100 Pulse Ox Interpretation: Normal - Radiology CXR: Interpreted by Me, Viewed By Me CXR Interpretation: No: Infiltrates, Fracture, Pnemothorax - Other Rad obstr X-Ray: Interpreted by Me, Viewed By Me Interpretation: lots of stool , no obstr Reevaluation Time: 01:42 Reassessment Condition: Improved Disposition Counseled Patient/Family Regarding: Studies Performed, Diagnosis, Need For Followup, Rx Given - Disposition Referrals: [facility] [Outside] Disposition: HOME/ ROUTINE Disposition Time: 23:55 Condition: FAIR Additional Instructions: Please return if symptoms recur Prescriptions: Polyethylene Glycol 3350 [Miralax] 17 gm PO DAILY #270 ml Instructions: Costochondritis (DC), Constipation, Adult (DC) Forms: [facility] (Bengali) Print Language: PERSIAN - Clinical Impression Clinical Impression: Costochondral chest pain, Constipation
[2018-06-30 23:37] VITALS: RESP 20; TEMP 97.1
[2018-06-30 23:41] VITALS: PULSE 84
[2018-06-30 23:51] LABS: BASO % 0.3 % (0.0-2.0); EOS # 0.2 K/uL (0.0-0.7); EOS % 2.4 % (0.0-4.0); HEMOGLOBIN 9.2 g/dL (11.0-16.0); LYMPH # 1.2 K/uL (1.0-4.3); LYMPH % 18.5 % (20.0-40.0); MEAN CELL VOLUME 69.9 fL (81.0-99.0); MEAN CORPUSCULAR HEMOGLOBIN 22.5 pg (27.0-31.0); MEAN CORPUSCULAR HGB CONC 32.2 g/dL (33.0-37.0); MEAN PLATELET VOLUME 7.5 fL (7.2-11.7); MONO # 0.4 K/uL (0.0-0.8); MONO % 6.7 % (0.0-10.0); NEUT # 4.7 K/uL (1.8-7.0); NEUT % 72.1 % (50.0-75.0); NRBC % 0.1 % (0.0-2.0); RBC 4.09 Mil/uL (3.80-5.20); RED CELL DISTRIBUTION WIDTH 17.7 % (11.5-14.5); WHITE BLOOD COUNT 6.5 K/uL (4.8-10.8)
[2018-07-01 00:21] LABS: PROTHROMBIN TIME 11.3 SECONDS (9.7-12.2)
[2018-07-01 00:26] LABS: SQUAMOUS EPITHIAL 3 /hpf (0-5); URINE BILIRUBIN NEGATIVE (NEGATIVE); URINE BLOOD NEGATIVE (NEGATIVE); URINE CLARITY Clear (Clear); URINE COLOR Straw (YELLOW); URINE GLUCOSE (UA) NORMAL (Normal); URINE LEUKOCYTE ESTERASE NEG Leu/uL (Negative); URINE PROTEIN NEGATIVE (NEGATIVE); URINE UROBILINOGEN NORMAL mg/dL (0.2-1.0)
[2018-07-01 00:34] LABS: HCG,QUALITATIVE URINE NEGATIVE (NEGATIVE)
[2018-07-01 00:46] LABS: ALB/GLOB RATIO 1.2 (1.0-2.1); ALBUMIN 3.9 g/dL (3.5-5.0); ALT/SGPT 17 U/L (9-52); AST/SGOT 17 U/L (14-36); BLOOD UREA NITROGEN 8 mg/dL (7-17); CALCIUM 8.6 mg/dl (8.6-10.4); GFR NON-AFRICAN AMERICAN > 60
[2018-07-01 01:56] VITALS: BP 122/63; O2SAT 98
--- NOTE | 2018-07-01 09:26 | RAD ---
Date of service: 07/01/2018 PROCEDURE: Radiographs of the chest and abdomen (obstructive series) HISTORY: abd pain COMPARISON: No prior. TECHNIQUE: AP radiograph of the chest, with upright and supine radiographs of the abdomen. FINDINGS: CHEST: Lungs: Clear. Cardiovascular: Normal size heart. No pulmonary vascular congestion.There is absence of aortic atherosclerotic calcification on x-ray. Pleura: No pleural fluid. No pneumothorax. Other findings: None. ABDOMEN AND PELVIS: Bowel: Stool retention. No bowel obstruction appreciated. Free air: None. Bones: Unremarkable. Other findings: Left hemipelvic phleboliths. The 2 mm calcification over the far lateral left flank lateral to the left: Probably is artifact and projects over the left iliac bone on series 3 image IMPRESSION: Stool retention. No bowel obstruction appreciated. No infiltrate.
--- NOTE | 2018-07-01 12:07 | CARD ---
APPROVED REPORT Date of service: 06/30/2018 EKG Measurement Heart [id number] <Conclusion> Normal sinus rhythm Possible Left atrial enlargement Incomplete right bundle branch block Cannot rule out Anterior infarct, age undetermined Abnormal ECG
== END 2018-07-01 01:56 | disposition home or self-care (01) ==
LOC: C.ER 22:24
DX: R07.89 Other chest pain (principal); K59.00 Constipation, unspecified

== ENCOUNTER 2018-10-27 21:50 | Emergency (ER) | payer OTHER, MEDICAID ==
[2018-10-27] MEDS ORDERED: Sodium Chloride 0.9% 1,000 ML IV ONE (22:24)
--- NOTE | 2018-10-27 22:26 | C.PDOC ---
History Of Present Illness 43 year old female with PMHx of frequent chest pain presents to the ED complaining of anterior chest pain that began tonight. Pain is located in the lower sternal area. Denies any shortness of breath, palpitations, nausea, cough, fever, chills, or any other associated symptoms. Chief Complaint (Nursing): Chest Pain History Per: Patient History/Exam Limitations: no limitations Onset/Duration Of Symptoms: Hrs Current Symptoms Are (Timing): Still Present Quality: "Pain" Associated Symptoms: denies: Nausea, Dyspnea, Diaphoresis Exacerbating Factors: None Past Medical History Reviewed: Historical Data, Nursing Documentation, Vital Signs Vital Signs: Last Vital Signs Temp 98.3 F 10/27/18 22:03 Pulse 74 10/27/18 22:03 Resp 18 10/27/18 22:03 BP 133/83 10/27/18 22:03 Pulse Ox 100 10/27/18 22:03 - Medical History PMH: Anemia, Asthma, Diabetes, Hypercholesterolemia Denies: HTN, Chronic Kidney Disease Surgical History: No Surg Hx - [facility] Procedures TRANSFUSE NONAUT FROZEN RED CELLS IN PERIPH VEIN, PERC (08/28/18) TRANSFUSE NONAUT RED BLOOD CELLS IN PERIPH VEIN, PERC (02/17/18) Family History: States: No Known Family Hx - Social History Hx Tobacco Use: No Hx Alcohol Use: No Hx Substance Use: No - Immunization History Hx Tetanus Toxoid Vaccination: No Hx Influenza Vaccination: No Hx Pneumococcal Vaccination: No Review Of Systems Except As Marked, All Systems Reviewed And Found Negative. Constitutional: Negative for: Fever, Chills Cardiovascular: Positive for: Chest Pain. Negative for: Palpitations Respiratory: Negative for: Cough, Shortness of Breath Gastrointestinal: Negative for: Nausea, Vomiting Physical Exam - Physical Exam Appears: Non-toxic, No Acute Distress Skin: Warm, Dry Head: Normacephalic Eye(s): bilateral: Normal Inspection Nose: Normal Oral Mucosa: Moist Neck: Supple Chest: Symmetrical, No Tenderness Cardiovascular: Rhythm Regular, No Murmur Respiratory: Normal Breath Sounds, No Rales, No Rhonchi, No Wheezing Gastrointestinal/Abdominal: Soft, No Tenderness Extremity: No Pedal Edema Pulses: Left Dorsalis Pedis: Normal, Right Dorsalis Pedis: Normal Neurological/Psych: Oriented x3, Normal Speech Gait: Steady ED Course And Treatment - Laboratory Results Result Diagrams: 10/27/18 23:00 10/27/18 23:00 ECG: Interpreted By Me, Viewed By Me ECG Rhythm: Sinus Rhythm ECG Interpretation: Normal, No Acute Changes Interpretation Of ECG: NSR, normal tracings, Rate From EC O2 Sat by Pulse Oximetry: 100 (RA) Pulse Ox Interpretation: Normal - Radiology CXR: Interpreted by Me, Viewed By Me CXR Interpretation: Yes: No Acute Disease, Other (normal chest film). No: Infiltrates Medical Decision Making Medical Decision Making: Plan - EKG - CXR - IV Fluids Disposition Doctor Will See Patient In The: Hospital Counseled Patient/Family Regarding: Diagnosis - Disposition Referrals: [facility] [Outside] Disposition: HOME/ ROUTINE Disposition Time: 23:55 Condition: STABLE Prescriptions: Tramadol HCl [Ultram] 25 mg PO Q6 #14 tablet Instructions: Costochondritis (DC) Forms: [facility] (Latvian), Gen Discharge Inst Kiswahili Print Language: SINHALA - POA Present On Arrival: None - Clinical Impression Clinical Impression: Chest wall pain - Scribe Statement The provider has reviewed the documentation as recorded by the Scribmichele Osborne All medical record entries made by the Scribe were at my direction and personally dictated by me. I have reviewed the chart and agree that the record accurately reflects my personal performance of the history, physical exam, medical decision making, and the department course for this patient. I have also personally directed, reviewed, and agree with the discharge instructions and disposition.
[2018-10-27] MEDS ORDERED: Sodium Chloride 0.9% 1,000 ML ONE (23:07)
[2018-10-27 23:10] LABS: BASO % 0.4 % (0.0-2.0); EOS # 0.2 K/uL (0.0-0.7); EOS % 3.5 % (0.0-4.0); HEMOGLOBIN 11.8 g/dL (11.0-16.0); LYMPH # 2.2 K/uL (1.0-4.3); LYMPH % 36.6 % (20.0-40.0); MEAN CELL VOLUME 78.3 fL (81.0-99.0); MEAN CORPUSCULAR HEMOGLOBIN 25.4 pg (27.0-31.0); MEAN CORPUSCULAR HGB CONC 32.5 g/dL (33.0-37.0); MEAN PLATELET VOLUME 7.2 fL (7.2-11.7); MONO # 0.3 K/uL (0.0-0.8); MONO % 4.5 % (0.0-10.0); NEUT # 3.3 K/uL (1.8-7.0); NRBC % 0.2 % (0.0-2.0); RBC 4.66 Mil/uL (3.80-5.20); RED CELL DISTRIBUTION WIDTH 21.7 % (11.5-14.5)
[2018-10-27 23:20] LABS: ALB/GLOB RATIO 1.2 (1.0-2.1); ALBUMIN 4.2 g/dL (3.5-5.0); ALT/SGPT 13 U/L (9-52); AST/SGOT 16 U/L (14-36); BLOOD UREA NITROGEN 12 mg/dL (7-17); CALCIUM 8.5 mg/dl (8.6-10.4); GFR NON-AFRICAN AMERICAN > 60
[2018-10-27 23:53] VITALS: O2SAT 100
[2018-10-28 00:34] VITALS: BP 119/80; PULSE 68; RESP 20; TEMP 98.9
--- NOTE | 2018-10-28 11:19 | RAD ---
HISTORY: chest pain COMPARISON: Chest x-ray performed 08/28/18 TECHNIQUE: Chest PA and lateral FINDINGS: LUNGS: No focal consolidation. Please note that chest x-ray has limited sensitivity for the detection of pulmonary masses. PLEURA: No significant pleural effusion identified. No definite pneumothorax . CARDIOVASCULAR: Heart size appears top normal. No atherosclerotic calcification present. OSSEOUS STRUCTURES: Degenerative changes. VISUALIZED UPPER ABDOMEN: Unremarkable. OTHER FINDINGS: None. IMPRESSION: No focal consolidation.
== END 2018-10-28 00:57 | disposition home or self-care (01) ==
LOC: C.ER 21:50
DX: R07.89 Other chest pain (principal); J45.909 Unspecified asthma, uncomplicated; E11.9 Type 2 diabetes mellitus without complications; E78.00 Pure hypercholesterolemia, unspecified
CPT/HCPCS: 71046; 80053; 84484; 85025; 85378; 96360; 99285; J7030

== ENCOUNTER 2019-01-04 14:08 | Emergency (ER) | payer MEDICAID ==
[2019-01-04 15:04] LABS: BASO % 0.6 % (0.0-2.0); EOS # 0.3 K/uL (0.0-0.7); EOS % 4.1 % (0.0-4.0); HEMOGLOBIN 12.3 g/dL (11.0-16.0); LYMPH # 2.6 K/uL (1.0-4.3); LYMPH % 35.5 % (20.0-40.0); MEAN CORPUSCULAR HEMOGLOBIN 28.4 pg (27.0-31.0); MEAN CORPUSCULAR HGB CONC 34.8 g/dL (33.0-37.0); MEAN PLATELET VOLUME 7.9 fL (7.2-11.7); MONO # 0.4 K/uL (0.0-0.8); MONO % 5.3 % (0.0-10.0); NEUT # 3.9 K/uL (1.8-7.0); NEUT % 54.5 % (50.0-75.0); RBC 4.34 Mil/uL (3.80-5.20); RED CELL DISTRIBUTION WIDTH 15.1 % (11.5-14.5); WHITE BLOOD COUNT 7.2 K/uL (4.8-10.8)
[2019-01-04 15:16] LABS: MEAN CELL VOLUME 81.6 fL (81.0-99.0)
[2019-01-04 15:18] LABS: HCG,QUALITATIVE URINE NEGATIVE (NEGATIVE)
[2019-01-04 15:19] LABS: ALB/GLOB RATIO 1.2 (1.0-2.1); ALBUMIN 4.3 g/dL (3.5-5.0); ALT/SGPT 25 U/L (9-52); AST/SGOT 34 U/L (14-36); BLOOD UREA NITROGEN 11 mg/dL (7-17); CALCIUM 8.7 mg/dl (8.6-10.4); GFR NON-AFRICAN AMERICAN > 60
[2019-01-04 15:25] LABS: SQUAMOUS EPITHIAL 6 /hpf (0-5); URINE BACTERIA RARE (<OCC); URINE BILIRUBIN NEGATIVE (NEGATIVE); URINE BLOOD NEGATIVE (NEGATIVE); URINE CALCIUM OXALATE CRYSTALS OCC /hpf (<OCC); URINE CLARITY Hazy (Clear); URINE COLOR Yellow (YELLOW); URINE GLUCOSE (UA) NORMAL (Normal); URINE LEUKOCYTE ESTERASE 3+ Leu/uL (Negative); URINE PROTEIN NEGATIVE (NEGATIVE); URINE UROBILINOGEN NORMAL mg/dL (0.2-1.0)
[2019-01-04 15:42] VITALS: BP 116/76; PULSE 58; RESP 17; TEMP 98.3; O2SAT 100
--- NOTE | 2019-01-04 15:46 | C.PDOC ---
History Of Present Illness Patient is a 43 year old female who presents to the ED c/o a headache for the past 5 days. Patient states that the headache started from the back of her head and not has radiated to the front. She reports associated nausea and dizziness and reports having pain in her body as well as her throat. Patient states that she has a hx of anemia and currently feels "rather anemic". She denies any fever, numbness, weakness, or visual changes. Time Seen by Provider: 01/04/19 14:27 Chief Complaint (Nursing): Headache History Per: Patient History/Exam Limitations: no limitations Onset/Duration Of Symptoms: Days (5) Current Symptoms Are (Timing): Still Present Quality: "Pain" Associated Symptoms: Nausea. denies: Photophobia, Blurred Vision, Extremity Weakness Recent travel outside of the [place]: No Additional History Per: Patient Past Medical History Reviewed: Historical Data, Nursing Documentation, Vital Signs Vital Signs: Last Vital Signs Temp 98.3 F 01/04/19 15:41 Pulse 58 L 01/04/19 15:41 Resp 17 01/04/19 15:41 BP 116/76 01/04/19 15:41 Pulse Ox 100 01/04/19 15:41 Primary Care Provider: Sebastien Garibay - Medical History PMH: Anemia, Asthma, Diabetes, Hypercholesterolemia Denies: HTN, Chronic Kidney Disease Surgical History: No Surg Hx - [facility] Procedures TRANSFUSE NONAUT FROZEN RED CELLS IN PERIPH VEIN, PERC (08/28/18) TRANSFUSE NONAUT RED BLOOD CELLS IN PERIPH VEIN, PERC (02/17/18) Family History: States: Unknown Family Hx - Social History Hx Tobacco Use: No Hx Alcohol Use: No Hx Substance Use: No - Immunization History Hx Tetanus Toxoid Vaccination: No Hx Influenza Vaccination: No Hx Pneumococcal Vaccination: No Review Of Systems Constitutional: Negative for: Fever Eyes: Negative for: Vision Change Gastrointestinal: Positive for: Nausea Neurological: Positive for: Headache, Dizziness. Negative for: Weakness, Numbness Physical Exam - Physical Exam Appears: Non-toxic, No Acute Distress Skin: Warm, Dry, No Rash Head: Atraumatic, Normacephalic, Other (No sinus tenderness. No temporal artery tenderness) Eye(s): bilateral: Normal Inspection, PERRL, EOMI Ear(s): Bilateral: Normal Nose: Normal, No Discharge Oral Mucosa: Moist Lips: Normal Appearing, No Swelling Throat: No Erythema, No Exudate Neck: Normal ROM, No Midline Cervical Tenderness, No Paracervical Tenderness, Supple Chest: Symmetrical Cardiovascular: Rhythm Regular, No Friction Rub, No Murmur Respiratory: Normal Breath Sounds, No Rales, No Rhonchi, No Stridor, No Wheezing Gastrointestinal/Abdominal: Soft, No Tenderness Back: Normal Inspection, No CVA Tenderness, No Vertebral Tenderness, No Paraspinal Tenderness Extremity: Normal ROM, No Tenderness, No Swelling Neurological/Psych: Oriented x3, Normal Speech, Normal Cognition, Normal Cranial Nerves, Normal Motor, Normal Sensation Gait: Steady ED Course And Treatment - Laboratory Results Result Diagrams: 01/04/19 15:00 01/04/19 15:00 Lab Results: Total Bilirubin 0.4 mg/dL (0.2-1.3) 01/04/19 15:00 AST 34 U/L (14-36) 01/04/19 15:00 ALT 25 U/L (9-52) 01/04/19 15:00 Alkaline Phosphatase 101 U/L (38-126) 01/04/19 15:00 Total Protein 7.9 g/dL (6.3-8.3) 01/04/19 15:00 Albumin 4.3 g/dL (3.5-5.0) 01/04/19 15:00 Globulin 3.6 gm/dL (2.2-3.9) 01/04/19 15:00 Albumin/Globulin Ratio 1.2 (1.0-2.1) 01/04/19 15:00 Urine Color Yellow (YELLOW) 01/04/19 15:00 Urine Clarity Hazy (Clear) 01/04/19 15:00 Urine pH 5.0 (5.0-8.0) 01/04/19 15:00 Ur Specific Polaris 1.021 (1.003-1.030) 01/04/19 15:00 Urine Protein Negative mg/dL (NEGATIVE) 01/04/19 15:00 Urine Glucose (UA) Normal mg/dL (Normal) 01/04/19 15:00 Urine Ketones Negative mg/dL (NEGATIVE) 01/04/19 15:00 Urine Blood Negative (NEGATIVE) 01/04/19 15:00 Urine Nitrate Negative (NEGATIVE) 01/04/19 15:00 Urine Bilirubin Negative (NEGATIVE) 01/04/19 15:00 Urine Urobilinogen Normal mg/dL (0.2-1.0) 01/04/19 15:00 Ur Leukocyte Esterase 3+ Saad/uL (Negative) H 01/04/19 15:00 Urine WBC (Auto) 25 /hpf (0-5) H 01/04/19 15:00 Urine RBC (Auto) 1 /hpf (0-3) 01/04/19 15:00 Ur Squamous Epith Cells 6 /hpf (0-5) H 01/04/19 15:00 Calcium Oxalate Crystal Occ /hpf (<OCC) H 01/04/19 15:00 Urine Bacteria Rare (<OCC) 01/04/19 15:00 Urine HCG, Qual Negative (NEGATIVE) 01/04/19 15:00 Urine HCG, Qual Negative (NEGATIVE) 01/04/19 15:00 O2 Sat by Pulse Oximetry: 100 (on RA) Pulse Ox Interpretation: Normal Medical Decision Making Medical Decision Making: Plan: Labs UA Reglan 10mg PO On re-examination, the patient is playful and active. Now afebrile, neck is supple, lungs are clear and patient is tolerating PO well. Disposition - Disposition Referrals: Sebastien Garibay MD [Medical Doctor] - Disposition: HOME/ ROUTINE Disposition Time: 15:43 Condition: GOOD Additional Instructions: Follow up with the medical doctor within 1-2 days. Return if worsened. Prescriptions: Metoclopramide [Reglan] 1 tab PO TID PRN #25 tab PRN Reason: Nausea/Vomiting Instructions: Migraine Headaches in Adults Forms: [facility] (Kyrgyz) Print Language: ANGUILLAN - Clinical Impression Clinical Impression: Headache, Migraine - PA / [employer] / Resident Statement MD/DO has examined the patient and agrees with the treatment plan. - Scribe Statement The provider has reviewed the documentation as recorded by the Abdirashid Florentino All medical record entries made by the Joselitoibmichele were at my direction and per sonally dictated by me. I have reviewed the chart and agree that the record accurately reflects my personal performance of the history, physical exam, medical decision making, and the department course for this patient. I have also personally directed, reviewed, and agree with the discharge instructions and disposition.
== END 2019-01-04 15:52 | disposition home or self-care (01) ==
LOC: C.ER 14:08
DX: G43.909 Migraine, unspecified, not intractable, without status migrainosus (principal)